=== PATIENT | female | born 1935 | race African-American/Black ===

== ENCOUNTER 2017-11-05 16:00 | Inpatient (IN) ==
[2017-11-05] MEDS ORDERED: ALBUTEROL/IPRATROPIUM 3 ML NEB RESP TX STA (16:58)
[2017-11-05] MEDS ORDERED: ONDANSETRON 4 MG/2 ML VIAL IV PRN (18:52)
[2017-11-05] MEDS ORDERED: DEXTROSE 50% 25 GM/50 ML VIAL IV PRN (18:52)
[2017-11-05] MEDS ORDERED: GLUCAGON 1 MG VIAL IM PRN (18:52)
[2017-11-05 19:45] LABS: Eosinophils % 0.4 % (0.00-10.9); Hematocrit 40.1 VOL% (35.7-47.0); Hemoglobin 12.5 GM/DL (12.0-16.0); Immature Granulocytes % 0.4 %; Immature Granulocytes Absolute 0.02 #; Lymphocytes % 19.4 % (21.3-54.2); Mean Corpuscular HGB Conc 31.2 GM/DL (32-36); Mean Corpuscular Hemoglobin 25 PG (27-34); Mean Corpuscular Volume 79.2 FL (87-102); Mean Platelet Volume 10.5 FL (9.6-12.0); Monocytes # 0.5 10*3/uL (0.11-0.8); Monocytes % 9.6 % (1.7-12.7); Neutrophils # 3.6 10*3/uL (1.4-7.4); Neutrophils % 70.2 % (38.7-73.9); Platelet Count 171 T/CUMM (130-400); Red Blood Count 5.06 MC/CUMM (3.8-5.5); Red Cell Distribution Width 14.6 % (9.3-17.3); White Blood Count 5.1 T/CUMM (4-12)
[2017-11-05 20:02] LABS: Calcium 8.4 MG/DL (8.5-10.1); Magnesium 2.4 MG/DL (1.8-2.4); Osmolality,Calculated 276.8 MOS/KG (273-304); Potassium 3.8 MMOL/L (3.5-5.1)
[2017-11-05 20:43] LABS: Apearance,Urine Slightly Hazy (Clear); Bilirubin,Urine Negative (Negative); Blood, Urine Moderate mg/dL (Negative); Glucose,Urine (UA) Negative (Negative); Ketones,Urine 5 mg/dL (Negative); Mucus,Urine Occasional /LPF (Occasional); Nitrite,Urine Negative (Negative); Protein,Urine 30 MG/DL; RBC,Urine 61 /HPF (0-4); Squamous Epithelial Cell,Urine Occasional /HPF (0-10); Urine Color Yellow (Yellow); Urine Specific Gravity 1.021 (1.001-1.035); WBC,Urine 2 /HPF (0-6)
[2017-11-05] MEDS ORDERED: MONTELUKAST 10 MG TABLET PO SCH (21:00)
[2017-11-05] MEDS: DOCUSATE SODIUM 100 MG CAPSULE PO SCH (21:04)
[2017-11-05] MEDS: INSULIN REGULAR 100 UNIT/ML SUBCUT SCH (21:04)
[2017-11-05] MEDS: OSELTAMIVIR 30 MG CAPSULE PO SCH (21:30)
[2017-11-06] MEDS: ALBUTEROL/IPRATROPIUM 3 ML NEB RESP TX SCH ×4 (01:28→19:25)
[2017-11-06 07:24] LABS: Eosinophils % 0.3 % (0.00-10.9); Hematocrit 35.3 VOL% (35.7-47.0); Hemoglobin 11.7 GM/DL (12.0-16.0); Immature Granulocytes % 0.3 %; Immature Granulocytes Absolute 0.01 #; Lymphocytes # 1.2 10*3/uL (1.4-4.0); Lymphocytes % 31.6 % (21.3-54.2); Mean Corpuscular HGB Conc 33.1 GM/DL (32-36); Mean Corpuscular Hemoglobin 25 PG (27-34); Mean Corpuscular Volume 76.6 FL (87-102); Mean Platelet Volume 10.4 FL (9.6-12.0); Monocytes # 0.5 10*3/uL (0.11-0.8); Monocytes % 13.8 % (1.7-12.7); Platelet Count 146 T/CUMM (130-400); Red Blood Count 4.61 MC/CUMM (3.8-5.5); Red Cell Distribution Width 14.5 % (9.3-17.3); White Blood Count 3.8 T/CUMM (4-12)
[2017-11-06 07:42] LABS: Calcium 7.8 MG/DL (8.5-10.1); Osmolality,Calculated 276.8 MOS/KG (273-304); Potassium 4.1 MMOL/L (3.5-5.1)
[2017-11-06] MEDS: INSULIN REGULAR 100 UNIT/ML SUBCUT SCH ×4 (08:47→22:12)
[2017-11-06] MEDS: DOCUSATE SODIUM 100 MG CAPSULE PO SCH ×2 (08:50→20:22)
[2017-11-06] MEDS: ACETAMINOPHEN 325 MG TABLET PO PRN (08:50)
[2017-11-06] MEDS: OSELTAMIVIR 30 MG CAPSULE PO SCH ×2 (08:52→22:13)
[2017-11-06] MEDS: PANTOPRAZOLE 40 MG TABLET PO SCH (08:52)
[2017-11-06] MEDS ORDERED: ALBUTEROL/IPRATROPIUM 3 ML NEB RESP TX PRN (09:58)
[2017-11-06] MEDS ORDERED: AMINOPHYLLINE 250 MG in SODIUM CHLORIDE 0.9% 100 ML IV ONE (10:12)
[2017-11-06] MEDS: methylPREDNISolone SOD SUC 40 MG/1 ML VIAL IV SCH (11:45)
[2017-11-06] MEDS: MONTELUKAST 10 MG TABLET PO SCH ×2 (11:46→22:13)
[2017-11-06] MEDS ORDERED: FLUTICASONE 50 MCG NASAL SPRAY 16 GM BOTTLE BOTH NARES PRN (14:45)
[2017-11-06] MEDS ORDERED: AMINOPHYLLINE 500 MG in SODIUM CHLORIDE 0.9% 480 ML IV SCH (15:42)
[2017-11-06] MEDS: MAGNESIUM OXIDE 400 MG TABLET PO SCH ×2 (16:24→22:12)
[2017-11-06] MEDS: INSULIN NPH/REGULAR 70/30 100 UNIT/ML SUBCUT SCH (16:25)
[2017-11-06] MEDS: ATENOLOL 25 MG TABLET PO SCH ×2 (16:25→22:13)
[2017-11-06] MEDS: DOXYCYCLINE HYCLATE INJ 100 MG in SODIUM CHLORIDE 0.9% 100 ML IV SCH (16:26)
[2017-11-06] MEDS: SIMVASTATIN 10 MG TABLET PO SCH (22:13)
[2017-11-07] MEDS: ALBUTEROL/IPRATROPIUM 3 ML NEB RESP TX SCH ×4 (00:08→20:06)
[2017-11-07] MEDS ORDERED: hydrALAZINE 20 MG/1 ML VIAL IV ONE (00:24)
[2017-11-07] MEDS: methylPREDNISolone SOD SUC 40 MG/1 ML VIAL IV SCH ×4 (00:42→21:59)
[2017-11-07] MEDS: DOXYCYCLINE HYCLATE INJ 100 MG in SODIUM CHLORIDE 0.9% 100 ML IV SCH ×2 (03:28→16:10)
[2017-11-07] MEDS: ACETAMINOPHEN 325 MG TABLET PO PRN (03:29)
[2017-11-07] MEDS: DOCUSATE SODIUM 100 MG CAPSULE PO SCH ×2 (08:50→21:00)
[2017-11-07] MEDS: INSULIN REGULAR 100 UNIT/ML SUBCUT SCH ×4 (09:49→20:53)
[2017-11-07] MEDS: MAGNESIUM OXIDE 400 MG TABLET PO SCH ×3 (09:51→20:53)
[2017-11-07] MEDS: ATENOLOL 25 MG TABLET PO SCH ×2 (09:51→20:53)
[2017-11-07] MEDS: OSELTAMIVIR 30 MG CAPSULE PO SCH ×2 (09:52→20:52)
[2017-11-07] MEDS: MONTELUKAST 10 MG TABLET PO SCH ×2 (09:52→20:53)
[2017-11-07] MEDS: INSULIN NPH/REGULAR 70/30 100 UNIT/ML SUBCUT SCH ×2 (09:52→16:10)
[2017-11-07] MEDS: ASPIRIN EC 81 MG TABLET PO SCH (09:52)
[2017-11-07] MEDS: THEOPHYLLINE ER (24 HR) 200 MG CAPSULE PO SCH (12:17)
[2017-11-07] MEDS: PANTOPRAZOLE 40 MG TABLET PO SCH (16:10)
[2017-11-07] MEDS: SIMVASTATIN 10 MG TABLET PO SCH (20:52)
[2017-11-08] MEDS: ALBUTEROL/IPRATROPIUM 3 ML NEB RESP TX SCH ×4 (00:45→19:50)
[2017-11-08] MEDS: DOXYCYCLINE HYCLATE INJ 100 MG in SODIUM CHLORIDE 0.9% 100 ML IV SCH ×2 (03:40→16:48)
[2017-11-08] MEDS ORDERED: DOXYCYCLINE HYCLATE 100 MG CAPSULE PO ONE (05:30)
[2017-11-08] MEDS: ACETAMINOPHEN 325 MG TABLET PO PRN (06:15)
[2017-11-08] MEDS ORDERED: predniSONE 20 MG TABLET PO SCH (09:00)
[2017-11-08] MEDS: ATENOLOL 25 MG TABLET PO SCH ×2 (09:23→20:01)
[2017-11-08] MEDS: MAGNESIUM OXIDE 400 MG TABLET PO SCH ×3 (09:23→20:00)
[2017-11-08] MEDS: INSULIN NPH/REGULAR 70/30 100 UNIT/ML SUBCUT SCH ×2 (09:23→16:47)
[2017-11-08] MEDS: OSELTAMIVIR 30 MG CAPSULE PO SCH ×2 (09:23→20:01)
[2017-11-08] MEDS: NYSTATIN 500,000 UNIT/5 ML UDCUP SWISH/SWAL SCH ×3 (09:23→20:01)
[2017-11-08] MEDS: DOCUSATE SODIUM 100 MG CAPSULE PO SCH ×2 (09:23→20:01)
[2017-11-08] MEDS: PANTOPRAZOLE 40 MG TABLET PO SCH (09:23)
[2017-11-08] MEDS: MONTELUKAST 10 MG TABLET PO SCH ×2 (09:23→20:01)
[2017-11-08] MEDS: ASPIRIN EC 81 MG TABLET PO SCH (09:23)
[2017-11-08] MEDS: INSULIN REGULAR 100 UNIT/ML SUBCUT SCH ×4 (09:23→20:01)
[2017-11-08] MEDS: THEOPHYLLINE ER (24 HR) 200 MG CAPSULE PO SCH (11:51)
[2017-11-08] MEDS: SIMVASTATIN 10 MG TABLET PO SCH (20:01)
[2017-11-08] MEDS: MICONAZOLE 2% VAG CREAM 45 GM TUBE VAG SCH (22:56)
[2017-11-09] MEDS: ALBUTEROL/IPRATROPIUM 3 ML NEB RESP TX SCH ×4 (00:48→19:32)
[2017-11-09] MEDS: DOXYCYCLINE HYCLATE INJ 100 MG in SODIUM CHLORIDE 0.9% 100 ML IV SCH (02:39)
[2017-11-09] MEDS: PANTOPRAZOLE 40 MG TABLET PO SCH (08:39)
[2017-11-09] MEDS: MONTELUKAST 10 MG TABLET PO SCH ×2 (08:39→21:44)
[2017-11-09] MEDS: ATENOLOL 25 MG TABLET PO SCH ×2 (08:39→21:50)
[2017-11-09] MEDS: INSULIN NPH/REGULAR 70/30 100 UNIT/ML SUBCUT SCH ×2 (08:39→17:31)
[2017-11-09] MEDS: predniSONE 20 MG TABLET PO SCH (08:39)
[2017-11-09] MEDS: MAGNESIUM OXIDE 400 MG TABLET PO SCH ×3 (08:39→21:44)
[2017-11-09] MEDS: ASPIRIN EC 81 MG TABLET PO SCH (08:39)
[2017-11-09] MEDS: NYSTATIN 500,000 UNIT/5 ML UDCUP SWISH/SWAL SCH ×4 (08:39→21:44)
[2017-11-09] MEDS: DOXYCYCLINE HYCLATE 100 MG CAPSULE PO SCH ×2 (08:39→21:44)
[2017-11-09] MEDS: DOCUSATE SODIUM 100 MG CAPSULE PO SCH ×2 (08:39→21:44)
[2017-11-09] MEDS: INSULIN REGULAR 100 UNIT/ML SUBCUT SCH ×4 (08:40→21:45)
[2017-11-09] MEDS: OSELTAMIVIR 30 MG CAPSULE PO SCH ×2 (08:40→21:44)
[2017-11-09] MEDS: THEOPHYLLINE ER (24 HR) 200 MG CAPSULE PO SCH (14:07)
[2017-11-09] MEDS: SIMVASTATIN 10 MG TABLET PO SCH (21:45)
[2017-11-09] MEDS: MICONAZOLE 2% VAG CREAM 45 GM TUBE VAG SCH (21:46)
[2017-11-10] MEDS: ALBUTEROL/IPRATROPIUM 3 ML NEB RESP TX SCH ×4 (00:24→19:22)
[2017-11-10 05:51] LABS: Basophils % 0.1 % (0.0-0.8); Eosinophils % 0.1 % (0.00-10.9); Hematocrit 34.8 VOL% (35.7-47.0); Hemoglobin 11.2 GM/DL (12.0-16.0); Immature Granulocytes Absolute 0.11 #; Lymphocytes # 3.7 10*3/uL (1.4-4.0); Lymphocytes % 33.2 % (21.3-54.2); Mean Corpuscular HGB Conc 32.2 GM/DL (32-36); Mean Corpuscular Hemoglobin 25 PG (27-34); Mean Corpuscular Volume 78.6 FL (87-102); Mean Platelet Volume 10.8 FL (9.6-12.0); Monocytes # 0.9 10*3/uL (0.11-0.8); Monocytes % 7.7 % (1.7-12.7); NRBC # 0.03 10*3/uL; Neutrophils # 6.5 10*3/uL (1.4-7.4); Neutrophils % 57.9 % (38.7-73.9); Platelet Count 157 T/CUMM (130-400); Red Blood Count 4.43 MC/CUMM (3.8-5.5); Red Cell Distribution Width 14.5 % (9.3-17.3); White Blood Count 11.2 T/CUMM (4-12)
[2017-11-10 06:14] LABS: Eosinophils 1 % (0-10); Lymphocytes 44 % (20-55); Platelet Estimate Normal; Segmented Neutrophils 49 % (50-85); Total Cells Counted 100
[2017-11-10 06:20] LABS: Calcium 8.8 MG/DL (8.5-10.1); Osmolality,Calculated 287.8 MOS/KG (273-304); Potassium 3.6 MMOL/L (3.5-5.1)
[2017-11-10] MEDS: INSULIN REGULAR 100 UNIT/ML SUBCUT SCH ×4 (08:01→21:42)
[2017-11-10] MEDS: ATENOLOL 25 MG TABLET PO SCH ×2 (08:55→21:46)
[2017-11-10] MEDS: ASPIRIN EC 81 MG TABLET PO SCH (08:55)
[2017-11-10] MEDS: MAGNESIUM OXIDE 400 MG TABLET PO SCH ×3 (08:55→21:46)
[2017-11-10] MEDS: DOCUSATE SODIUM 100 MG CAPSULE PO SCH ×2 (08:55→21:46)
[2017-11-10] MEDS: NYSTATIN 500,000 UNIT/5 ML UDCUP SWISH/SWAL SCH ×4 (08:55→21:49)
[2017-11-10] MEDS: DOXYCYCLINE HYCLATE 100 MG CAPSULE PO SCH ×2 (08:55→21:46)
[2017-11-10] MEDS: OSELTAMIVIR 30 MG CAPSULE PO SCH ×2 (08:55→21:47)
[2017-11-10] MEDS: MONTELUKAST 10 MG TABLET PO SCH ×2 (08:55→21:46)
[2017-11-10] MEDS: PANTOPRAZOLE 40 MG TABLET PO SCH (08:55)
[2017-11-10] MEDS: predniSONE 20 MG TABLET PO SCH (08:55)
[2017-11-10] MEDS: INSULIN NPH/REGULAR 70/30 100 UNIT/ML SUBCUT SCH ×2 (08:56→16:33)
[2017-11-10] MEDS: THEOPHYLLINE ER (24 HR) 200 MG CAPSULE PO SCH (11:29)
[2017-11-10] MEDS: DORNASE ALFA 2.5 MG/2.5 ML VIAL RESP TX SCH ×2 (12:32→19:32)
[2017-11-10] MEDS: SIMVASTATIN 10 MG TABLET PO SCH (21:46)
[2017-11-10] MEDS: ACETAMINOPHEN 325 MG TABLET PO PRN (21:55)
[2017-11-10] MEDS: MICONAZOLE 2% VAG CREAM 45 GM TUBE VAG SCH (22:58)
[2017-11-11] MEDS: ALBUTEROL/IPRATROPIUM 3 ML NEB RESP TX SCH ×3 (00:43→12:46)
[2017-11-11] MEDS: DORNASE ALFA 2.5 MG/2.5 ML VIAL RESP TX SCH (07:20)
[2017-11-11] MEDS: INSULIN REGULAR 100 UNIT/ML SUBCUT SCH ×2 (08:05→12:57)
[2017-11-11] MEDS: ATENOLOL 25 MG TABLET PO SCH (09:28)
[2017-11-11] MEDS: MAGNESIUM OXIDE 400 MG TABLET PO SCH (09:28)
[2017-11-11] MEDS: OSELTAMIVIR 30 MG CAPSULE PO SCH (09:28)
[2017-11-11] MEDS: MONTELUKAST 10 MG TABLET PO SCH (09:29)
[2017-11-11] MEDS: NYSTATIN 500,000 UNIT/5 ML UDCUP SWISH/SWAL SCH ×2 (09:29→13:14)
[2017-11-11] MEDS: ASPIRIN EC 81 MG TABLET PO SCH (09:29)
[2017-11-11] MEDS: INSULIN NPH/REGULAR 70/30 100 UNIT/ML SUBCUT SCH (09:29)
[2017-11-11] MEDS: DOXYCYCLINE HYCLATE 100 MG CAPSULE PO SCH (09:29)
[2017-11-11] MEDS: predniSONE 20 MG TABLET PO SCH (09:29)
[2017-11-11] MEDS: PANTOPRAZOLE 40 MG TABLET PO SCH (09:29)
[2017-11-11] MEDS: DOCUSATE SODIUM 100 MG CAPSULE PO SCH (09:29)
[2017-11-11] MEDS: THEOPHYLLINE ER (24 HR) 200 MG CAPSULE PO SCH (12:02)
[2017-11-11 12:12] VITALS: BP 121/60
== END 2017-11-11 14:07 | disposition home health service (06) | DRG 194 ==
LOC: N.ED 16:00 → N.EDINP 18:52 → SUATTDRO 18:52 → N.EDINP 20:50 → N.5E 21:02
PROVIDERS: ADMIT Internal Medicine; ATTEND Internal Medicine Geriatric Medicine

== ENCOUNTER 2019-05-16 17:31 | Observation (INO) ==
[2019-05-16 17:56] LABS: Basophils % 0.3 % (0.0-0.8); Eosinophils # 0.1 10*3/uL (0.0-0.87); Eosinophils % 1.3 % (0.00-10.9); Hematocrit 39.3 VOL% (35.7-47.0); Hemoglobin 11.8 GM/DL (12.0-16.0); Immature Granulocytes % 0.5 %; Immature Granulocytes Absolute 0.04 #; Lymphocytes # 2.2 10*3/uL (1.4-4.0); Lymphocytes % 27.6 % (21.3-54.2); Mean Corpuscular Volume 80.7 FL (87-102); Mean Platelet Volume 9.9 FL (9.6-12.0); Monocytes % 7.3 % (1.7-12.7); Platelet Count 178 T/CUMM (130-400); Red Blood Count 4.87 MC/CUMM (3.8-5.5); Red Cell Distribution Width 14.6 % (9.3-17.3); White Blood Count 7.9 T/CUMM (4-12)
[2019-05-16 18:26] LABS: Alanine Aminotransferase 17 U/L (13-56); Albumin 3.3 G/DL (3.4-5.0); Alkaline Phosphatase 110 U/L (45-117); Aspartate Amino Transferase 14 U/L (0-37); Bilirubin,Total < 0.39 MG/DL (0.2-1.0); Blood Urea Nitrogen 13 MG/DL (7-18); Calcium 9.4 MG/DL (8.5-10.1); Glucose 198 MG/DL (74-106); Osmolality,Calculated 284.4 MOS/KG (273-304); Total Protein 7.8 G/DL (6.4-8.3)
[2019-05-16 18:36] LABS: Apearance,Urine CLEAR (Clear); Bacteria,Urine Occasional /HPF (Few); Bilirubin,Urine Negative (Negative); Blood, Urine Small mg/dL (Negative); Glucose,Urine (UA) 150 mg/dL (Negative); Ketones,Urine Negative (Negative); Mucus,Urine Occasional /LPF (Occasional); Nitrite,Urine Negative (Negative); Protein,Urine Negative; RBC,Urine 1 /HPF (0-4); Squamous Epithelial Cell,Urine Occasional /HPF (0-10); Urine Color Yellow (Yellow); Urine Specific Gravity 1.014 (1.001-1.035); Urine Urobilinogen < 2.0 EU/DL (0.2-1.0); WBC,Urine 2 /HPF (0-6)
[2019-05-16] MEDS ORDERED: SODIUM CHLORIDE 0.9% 500 ML IV STA (20:11)
[2019-05-16] MEDS ORDERED: cloNIDine 0.1 MG TABLET ONE (22:02)
[2019-05-16] MEDS ORDERED: cloNIDine 0.1 MG TABLET PO STA (22:06)
[2019-05-16] MEDS ORDERED: ONDANSETRON 4 MG/2 ML VIAL IV PRN (23:49)
[2019-05-16] MEDS ORDERED: DEXTROSE 50% 25 GM/50 ML VIAL IV PRN (23:49)
[2019-05-16] MEDS ORDERED: GLUCAGON 1 MG VIAL IM PRN (23:49)
[2019-05-16] MEDS ORDERED: LABETALOL 20 MG/4 ML SYRINGE IV PRN (23:49)
[2019-05-17] MEDS ORDERED: DEXTROSE 10% 250 ML IV PRN (00:08)
[2019-05-17] MEDS: ATENOLOL 25 MG TABLET PO SCH ×2 (00:21→09:10)
[2019-05-17 05:01] LABS: Basophils % 0.1 % (0.0-0.8); Eosinophils # 0.1 10*3/uL (0.0-0.87); Eosinophils % 1.6 % (0.00-10.9); Hematocrit 36.7 VOL% (35.7-47.0); Hemoglobin 11.2 GM/DL (12.0-16.0); Immature Granulocytes % 0.2 %; Immature Granulocytes Absolute 0.02 #; Lymphocytes # 3.2 10*3/uL (1.4-4.0); Lymphocytes % 38.5 % (21.3-54.2); Mean Corpuscular HGB Conc 30.5 GM/DL (32-36); Mean Corpuscular Volume 80.3 FL (87-102); Monocytes % 6.9 % (1.7-12.7); Neutrophils % 52.7 % (38.7-73.9); Platelet Count 166 T/CUMM (130-400); Red Blood Count 4.57 MC/CUMM (3.8-5.5); Red Cell Distribution Width 14.6 % (9.3-17.3); White Blood Count 8.4 T/CUMM (4-12)
[2019-05-17 05:29] LABS: Calcium 9.1 MG/DL (8.5-10.1); Osmolality,Calculated 286.1 MOS/KG (273-304); Risk Ratio 3.36; Thyroid Stimulating Hormone 2.38 uIU/ml (0.358-3.74)
[2019-05-17] MEDS ORDERED: DOCUSATE SODIUM 100 MG CAPSULE PO PRN (09:00)
[2019-05-17] MEDS: INSULIN REGULAR 100 UNIT/ML SUBCUT SCH ×4 (09:09→21:31)
[2019-05-17] MEDS: ENOXAPARIN 40 MG/0.4 ML SYRINGE SUBCUT SCH (09:10)
[2019-05-17] MEDS: ASPIRIN EC 81 MG TABLET PO SCH (09:10)
[2019-05-17] MEDS: DEXAMETHASONE 0.1% OPH SOLN 5 ML BOTTLE RIGHT EAR SCH (21:31)
[2019-05-17] MEDS: hydrALAZINE 10 MG TABLET PO SCH (21:31)
[2019-05-17] MEDS: SIMVASTATIN 10 MG TABLET PO SCH (21:31)
[2019-05-18] MEDS: ACETAMINOPHEN 325 MG TABLET PO PRN ×4 (00:55→21:31)
[2019-05-18 05:29] LABS: Basophils % 0.2 % (0.0-0.8); Eosinophils # 0.1 10*3/uL (0.0-0.87); Eosinophils % 1.6 % (0.00-10.9); Hematocrit 41.2 VOL% (35.7-47.0); Hemoglobin 12.9 GM/DL (12.0-16.0); Immature Granulocytes % 0.4 %; Immature Granulocytes Absolute 0.03 #; Lymphocytes # 2.9 10*3/uL (1.4-4.0); Lymphocytes % 34.3 % (21.3-54.2); Mean Corpuscular HGB Conc 31.3 GM/DL (32-36); Mean Corpuscular Volume 78.8 FL (87-102); Mean Platelet Volume 10.7 FL (9.6-12.0); Monocytes % 7.6 % (1.7-12.7); Neutrophils % 55.9 % (38.7-73.9); Platelet Count 181 T/CUMM (130-400); Red Blood Count 5.23 MC/CUMM (3.8-5.5); Red Cell Distribution Width 14.3 % (9.3-17.3); White Blood Count 8.3 T/CUMM (4-12)
[2019-05-18 05:51] LABS: Calcium 9.2 MG/DL (8.5-10.1)
[2019-05-18] MEDS: DEXAMETHASONE 0.1% OPH SOLN 5 ML BOTTLE RIGHT EAR SCH ×2 (08:30→21:32)
[2019-05-18] MEDS: ENOXAPARIN 40 MG/0.4 ML SYRINGE SUBCUT SCH (08:31)
[2019-05-18] MEDS: hydrALAZINE 10 MG TABLET PO SCH (08:31)
[2019-05-18] MEDS: ASPIRIN EC 81 MG TABLET PO SCH (08:31)
[2019-05-18] MEDS: INSULIN REGULAR 100 UNIT/ML SUBCUT SCH ×4 (08:31→21:34)
[2019-05-18] MEDS: ATENOLOL 25 MG TABLET PO SCH (08:31)
[2019-05-18] MEDS: PANTOPRAZOLE 40 MG TABLET PO SCH (10:18)
[2019-05-18] MEDS: POTASSIUM CHLORIDE 8 MEQ CAPSULE PO SCH ×2 (11:42→21:31)
[2019-05-18] MEDS ORDERED: hydrALAZINE 20 MG/1 ML VIAL IV PRN (11:58)
[2019-05-18] MEDS: MAGNESIUM OXIDE 400 MG TABLET PO SCH ×2 (15:24→21:31)
[2019-05-18] MEDS ORDERED: INSULIN GLARGINE 100 UNIT/ML SUBCUT SCH (21:00)
[2019-05-18] MEDS: ZALEPLON 5 MG CAPSULE PO SCH ×2 (21:29→22:45)
[2019-05-18] MEDS: SIMVASTATIN 10 MG TABLET PO SCH (21:31)
[2019-05-19 05:53] LABS: Basophils % 0.3 % (0.0-0.8); Eosinophils # 0.2 10*3/uL (0.0-0.87); Hematocrit 39.1 VOL% (35.7-47.0); Hemoglobin 12.2 GM/DL (12.0-16.0); Immature Granulocytes % 0.4 %; Immature Granulocytes Absolute 0.03 #; Lymphocytes # 3.1 10*3/uL (1.4-4.0); Lymphocytes % 38.6 % (21.3-54.2); Mean Corpuscular HGB Conc 31.2 GM/DL (32-36); Mean Corpuscular Volume 79.5 FL (87-102); Mean Platelet Volume 10.5 FL (9.6-12.0); Monocytes % 7.5 % (1.7-12.7); Neutrophils % 51.2 % (38.7-73.9); Platelet Count 171 T/CUMM (130-400); Red Blood Count 4.92 MC/CUMM (3.8-5.5); Red Cell Distribution Width 14.6 % (9.3-17.3); White Blood Count 7.9 T/CUMM (4-12)
[2019-05-19 06:12] LABS: Calcium 9.1 MG/DL (8.5-10.1); Osmolality,Calculated 286.7 MOS/KG (273-304)
[2019-05-19] MEDS ORDERED: INSULIN GLARGINE 100 UNIT/ML SUBCUT SCH (07:10)
[2019-05-19] MEDS: POTASSIUM CHLORIDE 8 MEQ CAPSULE PO SCH (08:29)
[2019-05-19] MEDS: ATENOLOL 25 MG TABLET PO SCH (08:30)
[2019-05-19] MEDS: PANTOPRAZOLE 40 MG TABLET PO SCH (08:30)
[2019-05-19] MEDS: ASPIRIN EC 81 MG TABLET PO SCH (08:30)
[2019-05-19] MEDS: MAGNESIUM OXIDE 400 MG TABLET PO SCH (08:30)
[2019-05-19] MEDS: ENOXAPARIN 40 MG/0.4 ML SYRINGE SUBCUT SCH (08:32)
[2019-05-19] MEDS: DEXAMETHASONE 0.1% OPH SOLN 5 ML BOTTLE RIGHT EAR SCH (08:32)
[2019-05-19] MEDS: INSULIN REGULAR 100 UNIT/ML SUBCUT SCH ×2 (08:33→12:04)
[2019-05-19 11:36] VITALS: BP 104/54
== END 2019-05-19 13:09 | disposition home health service (06) ==
LOC: N.ED 17:31 → N.EDINP 17:31 → N.2E 23:14
PROVIDERS: ADMIT Internal Medicine; ATTEND Internal Medicine

== ENCOUNTER 2019-05-30 13:37 | Inpatient (IN) ==
[2019-05-30] MEDS ORDERED: SODIUM CHLORIDE 0.9% 1,000 ML IV STA (15:06)
[2019-05-30] MEDS ORDERED: ONDANSETRON 4 MG/2 ML VIAL IV ONE (15:06)
[2019-05-30] MEDS ORDERED: HYDROmorphone 2 MG/1 ML VIAL IV STA (15:06)
[2019-05-30 15:58] LABS: INR 1.3; PT Patient Result 13.9 SECS (9.6-12.2)
[2019-05-30 16:08] LABS: Albumin 3.6 G/DL (3.4-5.0); Bilirubin,Total 0.6 MG/DL (0.2-1.0); Calcium 9.6 MG/DL (8.5-10.1); Osmolality,Calculated 286.4 MOS/KG (273-304); Total Protein 8.6 G/DL (6.4-8.3)
[2019-05-30 16:48] LABS: Basophils % 0.2 % (0.0-0.8); Hematocrit 41.3 VOL% (35.7-47.0); Immature Granulocytes % 0.5 %; Immature Granulocytes Absolute 0.06 #; Lymphocytes % 8.6 % (21.3-54.2); Mean Corpuscular HGB Conc 31.5 GM/DL (32-36); Mean Corpuscular Volume 79.6 FL (87-102); Mean Platelet Volume 9.8 FL (9.6-12.0); Monocytes % 2.4 % (1.7-12.7); Neutrophils % 88.3 % (38.7-73.9); Platelet Count 216 T/CUMM (130-400); Red Blood Count 5.19 MC/CUMM (3.8-5.5); Red Cell Distribution Width 14.8 % (9.3-17.3); White Blood Count 11.7 T/CUMM (4-12)
[2019-05-30] MEDS ORDERED: MORPHINE 4 MG/1 ML VIAL IV ONE ×2 (16:57→18:11)
[2019-05-30] MEDS ORDERED: MORPHINE 4 MG/1 ML VIAL ONE (16:57)
[2019-05-30] MEDS ORDERED: diphenhydrAMINE 50 MG/1 ML VIAL IV STA (16:57)
[2019-05-30 17:58] LABS: Apearance,Urine CLEAR (Clear); Bilirubin,Urine Negative (Negative); Blood, Urine Moderate mg/dL (Negative); Glucose,Urine (UA) >=500 mg/dL (Negative); Ketones,Urine 20 mg/dL (Negative); Mucus,Urine Occasional /LPF (Occasional); Nitrite,Urine Negative (Negative); Protein,Urine 30 MG/DL; RBC,Urine 15 /HPF (0-4); Squamous Epithelial Cell,Urine Occasional /HPF (0-10); Urine Color Colorless (Yellow); Urine Specific Gravity 1.009 (1.001-1.035); Urine Urobilinogen < 2.0 EU/DL (0.2-1.0)
[2019-05-30] MEDS ORDERED: hydrALAZINE 20 MG/1 ML VIAL IV STA (18:11)
[2019-05-30] MEDS ORDERED: HYDROmorphone 2 MG/1 ML VIAL IV PRN (20:32)
[2019-05-30] MEDS ORDERED: ONDANSETRON 4 MG/2 ML VIAL IV PRN (20:32)
[2019-05-30] MEDS ORDERED: DOCUSATE SODIUM 100 MG CAPSULE PO PRN (20:32)
[2019-05-30] MEDS ORDERED: PROMETHAZINE INJ 25 MG in SODIUM CHLORIDE 0.9% 50 ML IV PRN (20:32)
[2019-05-30] MEDS ORDERED: hydrALAZINE 20 MG/1 ML VIAL IV PRN (20:32)
[2019-05-30] MEDS ORDERED: INSULIN REGULAR 100 UNIT/ML SUBCUT SCH (21:00)
[2019-05-30] MEDS: MORPHINE 4 MG/1 ML VIAL IV PRN (21:33)
[2019-05-30] MEDS: MECLIZINE 12.5 MG TABLET PO SCH (21:43)
[2019-05-30] MEDS: TAMSULOSIN 0.4 MG CAPSULE PO SCH (21:44)
[2019-05-30] MEDS: MAGNESIUM OXIDE 400 MG TABLET PO SCH (21:45)
[2019-05-30] MEDS: ATENOLOL 25 MG TABLET PO SCH (21:46)
[2019-05-30] MEDS: SODIUM CHLORIDE 0.9% 1,000 ML IV SCH (21:47)
[2019-05-30] MEDS: POTASSIUM CHLORIDE 8 MEQ CAPSULE PO SCH (21:57)
[2019-05-31] MEDS ORDERED: DEXTROSE 50% 25 GM/50 ML VIAL IV PRN (00:42)
[2019-05-31] MEDS ORDERED: GLUCAGON 1 MG VIAL IM PRN (00:42)
[2019-05-31] MEDS ORDERED: ALBUTEROL 2.5 MG/3 ML NEB RESP TX PRN (01:00)
[2019-05-31 02:17] LABS: Basophils % 0.2 % (0.0-0.8); Hematocrit 37.9 VOL% (35.7-47.0); Hemoglobin 11.8 GM/DL (12.0-16.0); Immature Granulocytes % 0.6 %; Immature Granulocytes Absolute 0.07 #; Lymphocytes # 1.8 10*3/uL (1.4-4.0); Lymphocytes % 14.5 % (21.3-54.2); Mean Corpuscular HGB Conc 31.1 GM/DL (32-36); Mean Corpuscular Volume 79.5 FL (87-102); Mean Platelet Volume 9.7 FL (9.6-12.0); Neutrophils % 77.7 % (38.7-73.9); Platelet Count 191 T/CUMM (130-400); Red Blood Count 4.77 MC/CUMM (3.8-5.5); Red Cell Distribution Width 14.7 % (9.3-17.3); White Blood Count 12.2 T/CUMM (4-12)
[2019-05-31 02:31] LABS: Calcium 8.6 MG/DL (8.5-10.1); Osmolality,Calculated 291.1 MOS/KG (273-304)
[2019-05-31] MEDS: INSULIN REGULAR 100 UNIT/ML SUBCUT SCH ×3 (07:22→19:11)
[2019-05-31] MEDS: MORPHINE 4 MG/1 ML VIAL IV PRN ×4 (08:54→21:50)
[2019-05-31] MEDS: diphenhydrAMINE 50 MG/1 ML VIAL IV PRN ×2 (08:54→15:17)
[2019-05-31] MEDS: cefTRIAXone 1,000 MG in SYRINGE 1 EACH IV SCH (08:55)
[2019-05-31] MEDS ORDERED: INSULIN GLARGINE 100 UNIT/ML SUBCUT SCH (09:00)
[2019-05-31] MEDS: MECLIZINE 12.5 MG TABLET PO SCH ×2 (10:34→21:57)
[2019-05-31] MEDS: MAGNESIUM OXIDE 400 MG TABLET PO SCH ×3 (10:35→21:56)
[2019-05-31] MEDS: FUROSEMIDE 40 MG TABLET PO SCH (10:35)
[2019-05-31] MEDS: POTASSIUM CHLORIDE 8 MEQ CAPSULE PO SCH ×2 (10:35→21:56)
[2019-05-31] MEDS: TAMSULOSIN 0.4 MG CAPSULE PO SCH ×2 (10:35→21:56)
[2019-05-31] MEDS: CETIRIZINE 10 MG TABLET PO SCH (10:36)
[2019-05-31] MEDS: PANTOPRAZOLE 40 MG TABLET PO SCH (10:36)
[2019-05-31] MEDS: ATENOLOL 25 MG TABLET PO SCH ×2 (10:36→21:57)
[2019-05-31] MEDS: DEXAMETHASONE 0.1% OPH SOLN 5 ML BOTTLE RIGHT EAR SCH ×2 (16:21→22:25)
[2019-05-31] MEDS: FLUTICASONE 50 MCG NASAL SPRAY 16 GM BOTTLE BOTH NARES SCH (17:14)
[2019-06-01] MEDS: MORPHINE 4 MG/1 ML VIAL IV PRN ×4 (01:12→14:04)
[2019-06-01] MEDS: INSULIN REGULAR 100 UNIT/ML SUBCUT SCH ×5 (01:15→23:44)
[2019-06-01] MEDS: SODIUM CHLORIDE 0.9% 1,000 ML IV SCH ×5 (03:15→23:52)
[2019-06-01 08:51] LABS: Basophils % 0.1 % (0.0-0.8); Eosinophils # 0.1 10*3/uL (0.0-0.87); Eosinophils % 0.8 % (0.00-10.9); Immature Granulocytes % 0.4 %; Immature Granulocytes Absolute 0.04 #; Lymphocytes # 1.8 10*3/uL (1.4-4.0); Lymphocytes % 19.7 % (21.3-54.2); Mean Corpuscular HGB Conc 30.6 GM/DL (32-36); Monocytes % 9.2 % (1.7-12.7); Neutrophils % 69.8 % (38.7-73.9); Platelet Count 155 T/CUMM (130-400); Red Blood Count 3.95 MC/CUMM (3.8-5.5); Red Cell Distribution Width 15.1 % (9.3-17.3); White Blood Count 9.2 T/CUMM (4-12)
[2019-06-01] MEDS: cefTRIAXone 1,000 MG in SYRINGE 1 EACH IV SCH (08:58)
[2019-06-01] MEDS: DEXAMETHASONE 0.1% OPH SOLN 5 ML BOTTLE RIGHT EAR SCH ×2 (08:58→20:58)
[2019-06-01] MEDS: FLUTICASONE 50 MCG NASAL SPRAY 16 GM BOTTLE BOTH NARES SCH (08:58)
[2019-06-01] MEDS: CETIRIZINE 10 MG TABLET PO SCH (08:59)
[2019-06-01] MEDS: PANTOPRAZOLE 40 MG TABLET PO SCH (08:59)
[2019-06-01] MEDS: MECLIZINE 12.5 MG TABLET PO SCH ×2 (08:59→20:59)
[2019-06-01] MEDS: TAMSULOSIN 0.4 MG CAPSULE PO SCH ×2 (08:59→20:59)
[2019-06-01] MEDS: MAGNESIUM OXIDE 400 MG TABLET PO SCH ×3 (08:59→20:59)
[2019-06-01] MEDS: ATENOLOL 25 MG TABLET PO SCH ×2 (08:59→21:00)
[2019-06-01] MEDS: FUROSEMIDE 40 MG TABLET PO SCH (08:59)
[2019-06-01] MEDS: POTASSIUM CHLORIDE 8 MEQ CAPSULE PO SCH ×2 (09:00→20:58)
[2019-06-01 09:02] LABS: Hemoglobin 9.8 GM/DL (12.0-16.0)
[2019-06-01 09:18] LABS: Calcium 7.9 MG/DL (8.5-10.1); Osmolality,Calculated 281.4 MOS/KG (273-304)
[2019-06-01] MEDS ORDERED: FLUCONAZOLE INJ 200 MG in PREMIX 1 EACH IV ONE (16:13)
[2019-06-01 20:19] LABS: INR 1.1; PT Patient Result 11.7 SECS (9.6-12.2); Partial Thromboplastin Time 23.8 SECS (20.8-36.0)
[2019-06-01 20:25] LABS: Albumin 2.5 G/DL (3.4-5.0); Bilirubin,Total 0.4 MG/DL (0.2-1.0); Osmolality,Calculated 282.5 MOS/KG (273-304); Total Protein 6.7 G/DL (6.4-8.3)
[2019-06-01] MEDS: diphenhydrAMINE 50 MG/1 ML VIAL IV PRN (21:01)
[2019-06-02] MEDS: ACETAMINOPHEN 325 MG TABLET PO PRN (03:14)
[2019-06-02] MEDS: INSULIN REGULAR 100 UNIT/ML SUBCUT SCH ×3 (05:17→18:40)
[2019-06-02 06:21] LABS: Basophils % 0.1 % (0.0-0.8); Eosinophils % 0.3 % (0.00-10.9); Hematocrit 32.3 VOL% (35.7-47.0); Immature Granulocytes % 0.8 %; Immature Granulocytes Absolute 0.08 #; Lymphocytes # 1.6 10*3/uL (1.4-4.0); Lymphocytes % 14.7 % (21.3-54.2); Mean Corpuscular Volume 80.3 FL (87-102); Mean Platelet Volume 10.1 FL (9.6-12.0); Monocytes % 11.1 % (1.7-12.7); Platelet Count 137 T/CUMM (130-400); Red Blood Count 4.02 MC/CUMM (3.8-5.5); Red Cell Distribution Width 14.8 % (9.3-17.3); White Blood Count 10.6 T/CUMM (4-12)
[2019-06-02 06:45] LABS: Calcium 8.1 MG/DL (8.5-10.1); Osmolality,Calculated 277.5 MOS/KG (273-304)
[2019-06-02] MEDS: TAMSULOSIN 0.4 MG CAPSULE PO SCH ×2 (09:00→21:06)
[2019-06-02] MEDS: MAGNESIUM OXIDE 400 MG TABLET PO SCH ×3 (09:00→21:05)
[2019-06-02] MEDS: MECLIZINE 12.5 MG TABLET PO SCH ×2 (09:00→21:06)
[2019-06-02] MEDS: POTASSIUM CHLORIDE 8 MEQ CAPSULE PO SCH ×2 (09:00→21:05)
[2019-06-02] MEDS: DEXAMETHASONE 0.1% OPH SOLN 5 ML BOTTLE RIGHT EAR SCH ×2 (09:00→21:06)
[2019-06-02] MEDS: cefTRIAXone 1,000 MG in SYRINGE 1 EACH IV SCH (09:17)
[2019-06-02] MEDS: MEROPENEM 1,000 MG in SODIUM CHLORIDE 0.9% 100 ML IV SCH ×2 (09:44→21:12)
[2019-06-02] MEDS: ATENOLOL 25 MG TABLET PO SCH ×2 (09:45→21:05)
[2019-06-02] MEDS: FLUTICASONE 50 MCG NASAL SPRAY 16 GM BOTTLE BOTH NARES SCH (09:45)
[2019-06-02] MEDS: SODIUM CHLORIDE 0.9% 1,000 ML IV SCH ×4 (10:26→19:45)
[2019-06-02] MEDS ORDERED: VANCOMYCIN INJ 1,500 MG in SODIUM CHLORIDE 0.9% 250 ML IV ONE (11:00)
[2019-06-02] MEDS ORDERED: VANCOMYCIN INJ 1,500 MG in SODIUM CHLORIDE 0.9% 500 ML IV ONE (11:00)
[2019-06-02] MEDS ORDERED: VANCOMYCIN INJ 1,000 MG in SODIUM CHLORIDE 0.9% 250 ML IV PRN (11:16)
[2019-06-02] MEDS ORDERED: SEVOFLURANE 1 UNIT/15 MINUTE INH ONE (12:16)
[2019-06-02] MEDS ORDERED: PHENYLEPHRINE 1 MG/10 ML SYRINGE IV ONE (12:17)
[2019-06-02] MEDS ORDERED: fentaNYL 100 MCG/2 ML VIAL ONE (12:17)
[2019-06-02] MEDS ORDERED: ETOMIDATE 40 MG/20 ML VIAL IV ONE (12:17)
[2019-06-02] MEDS ORDERED: ONDANSETRON 4 MG/2 ML VIAL ONE (12:17)
[2019-06-02] MEDS ORDERED: DEXTROSE 50% 25 GM/50 ML VIAL IV PRN (16:35)
[2019-06-02] MEDS ORDERED: GLUCAGON 1 MG VIAL IM PRN (16:35)
[2019-06-02] MEDS: FUROSEMIDE 40 MG TABLET PO SCH (16:59)
[2019-06-02] MEDS: PANTOPRAZOLE 40 MG TABLET PO SCH (16:59)
[2019-06-02] MEDS: CETIRIZINE 10 MG TABLET PO SCH (17:00)
[2019-06-03] MEDS: INSULIN REGULAR 100 UNIT/ML SUBCUT SCH ×4 (01:18→20:11)
[2019-06-03] MEDS: SODIUM CHLORIDE 0.9% 1,000 ML IV SCH ×3 (04:39→19:00)
[2019-06-03 07:51] LABS: Basophils % 0.1 % (0.0-0.8); Eosinophils % 0.5 % (0.00-10.9); Hematocrit 28.1 VOL% (35.7-47.0); Hemoglobin 8.8 GM/DL (12.0-16.0); Immature Granulocytes % 0.4 %; Immature Granulocytes Absolute 0.03 #; Lymphocytes % 12.1 % (21.3-54.2); Mean Corpuscular HGB Conc 31.3 GM/DL (32-36); Mean Corpuscular Volume 79.6 FL (87-102); Mean Platelet Volume 10.4 FL (9.6-12.0); Monocytes % 8.1 % (1.7-12.7); Neutrophils % 78.8 % (38.7-73.9); Platelet Count 127 T/CUMM (130-400); Red Blood Count 3.53 MC/CUMM (3.8-5.5); Red Cell Distribution Width 14.9 % (9.3-17.3); White Blood Count 8.3 T/CUMM (4-12)
[2019-06-03 08:08] LABS: Calcium 7.9 MG/DL (8.5-10.1); Osmolality,Calculated 284.3 MOS/KG (273-304)
[2019-06-03] MEDS: MECLIZINE 12.5 MG TABLET PO SCH ×2 (10:07→21:43)
[2019-06-03] MEDS: MAGNESIUM OXIDE 400 MG TABLET PO SCH ×3 (10:08→21:43)
[2019-06-03] MEDS: TAMSULOSIN 0.4 MG CAPSULE PO SCH ×2 (10:08→21:43)
[2019-06-03] MEDS: POTASSIUM CHLORIDE 8 MEQ CAPSULE PO SCH ×2 (10:08→21:44)
[2019-06-03] MEDS: FUROSEMIDE 40 MG TABLET PO SCH (10:08)
[2019-06-03] MEDS: ATENOLOL 25 MG TABLET PO SCH ×2 (10:09→21:44)
[2019-06-03] MEDS: PANTOPRAZOLE 40 MG TABLET PO SCH (10:09)
[2019-06-03] MEDS: CETIRIZINE 10 MG TABLET PO SCH (10:09)
[2019-06-03] MEDS: MEROPENEM 1,000 MG in SODIUM CHLORIDE 0.9% 100 ML IV SCH ×2 (10:51→16:50)
[2019-06-03] MEDS: FLUTICASONE 50 MCG NASAL SPRAY 16 GM BOTTLE BOTH NARES SCH (10:51)
[2019-06-03] MEDS: DEXAMETHASONE 0.1% OPH SOLN 5 ML BOTTLE RIGHT EAR SCH ×2 (10:51→21:43)
[2019-06-04] MEDS: INSULIN REGULAR 100 UNIT/ML SUBCUT SCH ×4 (00:40→19:34)
[2019-06-04] MEDS: SODIUM CHLORIDE 0.9% 1,000 ML IV SCH ×4 (00:45→20:56)
[2019-06-04] MEDS: MEROPENEM 1,000 MG in SODIUM CHLORIDE 0.9% 100 ML IV SCH ×3 (04:36→21:51)
[2019-06-04 05:46] LABS: Basophils % 0.1 % (0.0-0.8); Eosinophils # 0.1 10*3/uL (0.0-0.87); Eosinophils % 1.5 % (0.00-10.9); Hematocrit 26.1 VOL% (35.7-47.0); Hemoglobin 8.2 GM/DL (12.0-16.0); Immature Granulocytes % 0.8 %; Immature Granulocytes Absolute 0.06 #; Lymphocytes # 1.3 10*3/uL (1.4-4.0); Mean Corpuscular HGB Conc 31.4 GM/DL (32-36); Mean Corpuscular Volume 78.9 FL (87-102); Mean Platelet Volume 11.1 FL (9.6-12.0); Monocytes % 7.1 % (1.7-12.7); Neutrophils % 72.5 % (38.7-73.9); Platelet Count 139 T/CUMM (130-400); Red Blood Count 3.31 MC/CUMM (3.8-5.5); Red Cell Distribution Width 14.7 % (9.3-17.3); White Blood Count 7.4 T/CUMM (4-12)
[2019-06-04 06:08] LABS: Calcium 7.6 MG/DL (8.5-10.1)
[2019-06-04] MEDS: CETIRIZINE 10 MG TABLET PO SCH (10:39)
[2019-06-04] MEDS: FLUTICASONE 50 MCG NASAL SPRAY 16 GM BOTTLE BOTH NARES SCH (10:39)
[2019-06-04] MEDS: DEXAMETHASONE 0.1% OPH SOLN 5 ML BOTTLE RIGHT EAR SCH ×2 (10:39→21:50)
[2019-06-04] MEDS: FUROSEMIDE 40 MG TABLET PO SCH (10:40)
[2019-06-04] MEDS: PANTOPRAZOLE 40 MG TABLET PO SCH (10:40)
[2019-06-04] MEDS: MECLIZINE 12.5 MG TABLET PO SCH ×2 (10:40→21:49)
[2019-06-04] MEDS: POTASSIUM CHLORIDE 8 MEQ CAPSULE PO SCH ×2 (10:40→21:51)
[2019-06-04] MEDS: MAGNESIUM OXIDE 400 MG TABLET PO SCH ×3 (10:40→21:50)
[2019-06-04] MEDS: ATENOLOL 25 MG TABLET PO SCH ×2 (10:41→21:51)
[2019-06-04] MEDS: TAMSULOSIN 0.4 MG CAPSULE PO SCH ×2 (10:41→21:50)
[2019-06-04] MEDS: ACETAMINOPHEN 325 MG TABLET PO PRN (10:58)
[2019-06-04] MEDS ORDERED: POTASSIUM CHLORIDE 20 MEQ/15 ML UDCUP PO SCH (12:00)
[2019-06-05] MEDS: INSULIN REGULAR 100 UNIT/ML SUBCUT SCH ×4 (01:05→18:30)
[2019-06-05] MEDS: SODIUM CHLORIDE 0.9% 1,000 ML IV SCH ×4 (04:41→22:03)
[2019-06-05] MEDS ORDERED: POTASSIUM CHLORIDE 20 MEQ/15 ML UDCUP PO ONE (05:00)
[2019-06-05] MEDS: MEROPENEM 1,000 MG in SODIUM CHLORIDE 0.9% 100 ML IV SCH ×2 (05:07→14:30)
[2019-06-05 06:05] LABS: Basophils % 0.3 % (0.0-0.8); Eosinophils # 0.2 10*3/uL (0.0-0.87); Eosinophils % 2.6 % (0.00-10.9); Hematocrit 28.2 VOL% (35.7-47.0); Hemoglobin 8.8 GM/DL (12.0-16.0); Immature Granulocytes % 0.5 %; Immature Granulocytes Absolute 0.03 #; Lymphocytes # 1.6 10*3/uL (1.4-4.0); Lymphocytes % 25.7 % (21.3-54.2); Mean Corpuscular HGB Conc 31.2 GM/DL (32-36); Mean Corpuscular Volume 79.2 FL (87-102); Mean Platelet Volume 10.8 FL (9.6-12.0); Monocytes % 7.4 % (1.7-12.7); Neutrophils % 63.5 % (38.7-73.9); Platelet Count 164 T/CUMM (130-400); Red Blood Count 3.56 MC/CUMM (3.8-5.5); Red Cell Distribution Width 14.7 % (9.3-17.3); White Blood Count 6.2 T/CUMM (4-12)
[2019-06-05 06:15] LABS: Calcium 8.2 MG/DL (8.5-10.1); Osmolality,Calculated 287.8 MOS/KG (273-304)
[2019-06-05 07:51] LABS: Band Neutrophils 1 % (0-10); Eosinophils 3 % (0-10); Hypochromasia 2+; Lymphocytes 22 % (20-55); Microcytosis 1+; Ovalocytes Few; Platelet Estimate Adequate; Polychromasia Slight; Segmented Neutrophils 68 % (50-85); Total Cells Counted 100
[2019-06-05] MEDS ORDERED: MAGNESIUM SULF RIDER 4 GM in PREMIX 1 EACH IV ONE (07:58)
[2019-06-05] MEDS: MAGNESIUM OXIDE 400 MG TABLET PO SCH ×3 (09:16→21:57)
[2019-06-05] MEDS: CETIRIZINE 10 MG TABLET PO SCH (09:16)
[2019-06-05] MEDS: ATENOLOL 25 MG TABLET PO SCH ×2 (09:16→21:56)
[2019-06-05] MEDS: FLUTICASONE 50 MCG NASAL SPRAY 16 GM BOTTLE BOTH NARES SCH (09:16)
[2019-06-05] MEDS: MECLIZINE 12.5 MG TABLET PO SCH ×2 (09:16→21:57)
[2019-06-05] MEDS: POTASSIUM CHLORIDE 8 MEQ CAPSULE PO SCH ×2 (09:16→21:57)
[2019-06-05] MEDS: TAMSULOSIN 0.4 MG CAPSULE PO SCH ×2 (09:16→21:57)
[2019-06-05] MEDS: PANTOPRAZOLE 40 MG TABLET PO SCH (09:16)
[2019-06-05] MEDS: FUROSEMIDE 40 MG TABLET PO SCH (09:16)
[2019-06-05] MEDS: DEXAMETHASONE 0.1% OPH SOLN 5 ML BOTTLE RIGHT EAR SCH ×2 (09:17→21:58)
[2019-06-05] MEDS: cefTRIAXone 1,000 MG in SYRINGE 1 EACH IV SCH (14:30)
[2019-06-06] MEDS: INSULIN REGULAR 100 UNIT/ML SUBCUT SCH ×4 (00:39→19:30)
[2019-06-06] MEDS ORDERED: ALBUTEROL/IPRATROPIUM 3 ML NEB RESP TX PRN (02:58)
[2019-06-06 08:51] LABS: Basophils % 0.3 % (0.0-0.8); Eosinophils # 0.1 10*3/uL (0.0-0.87); Eosinophils % 1.5 % (0.00-10.9); Hematocrit 26.8 VOL% (35.7-47.0); Hemoglobin 8.4 GM/DL (12.0-16.0); Immature Granulocytes % 0.3 %; Immature Granulocytes Absolute 0.02 #; Lymphocytes # 1.7 10*3/uL (1.4-4.0); Lymphocytes % 25.9 % (21.3-54.2); Mean Corpuscular HGB Conc 31.3 GM/DL (32-36); Mean Corpuscular Volume 79.1 FL (87-102); Mean Platelet Volume 10.9 FL (9.6-12.0); Monocytes % 6.9 % (1.7-12.7); Neutrophils % 65.1 % (38.7-73.9); Platelet Count 172 T/CUMM (130-400); Red Blood Count 3.39 MC/CUMM (3.8-5.5); Red Cell Distribution Width 14.7 % (9.3-17.3); White Blood Count 6.7 T/CUMM (4-12)
[2019-06-06] MEDS: FLUTICASONE 50 MCG NASAL SPRAY 16 GM BOTTLE BOTH NARES SCH (09:15)
[2019-06-06] MEDS: SODIUM CHLORIDE 0.9% 1,000 ML IV SCH ×3 (09:15→23:33)
[2019-06-06] MEDS: MECLIZINE 12.5 MG TABLET PO SCH ×2 (09:16→21:49)
[2019-06-06] MEDS: MAGNESIUM OXIDE 400 MG TABLET PO SCH ×3 (09:16→21:47)
[2019-06-06] MEDS: ATENOLOL 25 MG TABLET PO SCH ×2 (09:16→21:47)
[2019-06-06] MEDS: DEXAMETHASONE 0.1% OPH SOLN 5 ML BOTTLE RIGHT EAR SCH ×2 (09:16→21:47)
[2019-06-06] MEDS: TAMSULOSIN 0.4 MG CAPSULE PO SCH ×2 (09:16→21:49)
[2019-06-06] MEDS: ACETAMINOPHEN 325 MG TABLET PO PRN (09:16)
[2019-06-06] MEDS: CETIRIZINE 10 MG TABLET PO SCH (09:16)
[2019-06-06 09:17] LABS: Eosinophils 1 % (0-10); Lymphocytes 21 % (20-55); Segmented Neutrophils 70 % (50-85); Total Cells Counted 100
[2019-06-06] MEDS: PANTOPRAZOLE 40 MG TABLET PO SCH (09:17)
[2019-06-06] MEDS: FUROSEMIDE 40 MG TABLET PO SCH (09:17)
[2019-06-06] MEDS: POTASSIUM CHLORIDE 8 MEQ CAPSULE PO SCH ×2 (09:17→21:47)
[2019-06-06 09:18] LABS: Atypical Lymphocytes Few; Calcium 8.1 MG/DL (8.5-10.1); Giant Platelets Few; Hypochromasia 2+; Microcytosis 2+; Ovalocytes Few
[2019-06-06 09:19] LABS: Platelet Estimate Adequate
[2019-06-06] MEDS: cefTRIAXone 1,000 MG in SYRINGE 1 EACH IV SCH (16:09)
[2019-06-06] MEDS: MORPHINE 4 MG/1 ML VIAL IV PRN (22:39)
[2019-06-06] MEDS: diphenhydrAMINE 50 MG/1 ML VIAL IV PRN (22:39)
[2019-06-07] MEDS: INSULIN REGULAR 100 UNIT/ML SUBCUT SCH ×4 (00:52→19:34)
[2019-06-07 05:35] LABS: Basophils % 0.1 % (0.0-0.8); Eosinophils # 0.1 10*3/uL (0.0-0.87); Eosinophils % 1.6 % (0.00-10.9); Hematocrit 26.3 VOL% (35.7-47.0); Hemoglobin 8.1 GM/DL (12.0-16.0); Immature Granulocytes % 0.6 %; Immature Granulocytes Absolute 0.04 #; Lymphocytes # 1.9 10*3/uL (1.4-4.0); Lymphocytes % 28.2 % (21.3-54.2); Mean Corpuscular HGB Conc 30.8 GM/DL (32-36); Mean Corpuscular Volume 80.4 FL (87-102); Mean Platelet Volume 10.9 FL (9.6-12.0); Monocytes % 7.9 % (1.7-12.7); Neutrophils % 61.6 % (38.7-73.9); Platelet Count 176 T/CUMM (130-400); Red Blood Count 3.27 MC/CUMM (3.8-5.5); Red Cell Distribution Width 14.8 % (9.3-17.3); White Blood Count 6.9 T/CUMM (4-12)
[2019-06-07 06:08] LABS: Calcium 8.2 MG/DL (8.5-10.1)
[2019-06-07] MEDS: SODIUM CHLORIDE 0.9% 1,000 ML IV SCH (06:30)
[2019-06-07] MEDS: FUROSEMIDE 40 MG TABLET PO SCH (09:00)
[2019-06-07] MEDS: DEXAMETHASONE 0.1% OPH SOLN 5 ML BOTTLE RIGHT EAR SCH ×2 (09:00→21:45)
[2019-06-07] MEDS: MAGNESIUM OXIDE 400 MG TABLET PO SCH ×3 (09:00→21:45)
[2019-06-07] MEDS: PANTOPRAZOLE 40 MG TABLET PO SCH (09:00)
[2019-06-07] MEDS: MECLIZINE 12.5 MG TABLET PO SCH ×2 (09:00→21:45)
[2019-06-07] MEDS: POTASSIUM CHLORIDE 8 MEQ CAPSULE PO SCH ×2 (09:00→21:45)
[2019-06-07] MEDS: TAMSULOSIN 0.4 MG CAPSULE PO SCH ×2 (09:00→21:46)
[2019-06-07] MEDS: FLUTICASONE 50 MCG NASAL SPRAY 16 GM BOTTLE BOTH NARES SCH (09:00)
[2019-06-07] MEDS: CETIRIZINE 10 MG TABLET PO SCH (09:00)
[2019-06-07] MEDS: ATENOLOL 25 MG TABLET PO SCH ×2 (09:47→21:45)
[2019-06-07] MEDS ORDERED: cefTRIAXone 1,000 MG in SYRINGE 1 EACH IV ONE (12:39)
[2019-06-07] MEDS: ASPIRIN EC 81 MG TABLET PO SCH (12:53)
[2019-06-07] MEDS: cefTRIAXone 1,000 MG in SYRINGE 1 EACH IV SCH (13:30)
[2019-06-07] MEDS ORDERED: LACTATED RINGERS 1,000 ML IV SCH (14:00)
[2019-06-07] MEDS ORDERED: SUGAMMADEX 200 MG/2 ML VIAL IV ONE (14:43)
[2019-06-07] MEDS ORDERED: PHENYLEPHRINE DRIP 20 MG/250 ML PREMIX IV ONE (15:14)
[2019-06-07] MEDS ORDERED: fentaNYL 100 MCG/2 ML VIAL ONE (15:14)
[2019-06-07] MEDS ORDERED: LIDOCAINE 100 MG/5 ML SYRINGE ONE (15:14)
[2019-06-07] MEDS ORDERED: SEVOFLURANE 1 UNIT/15 MINUTE INH ONE (15:14)
[2019-06-07] MEDS ORDERED: ONDANSETRON 4 MG/2 ML VIAL ONE (15:15)
[2019-06-07] MEDS ORDERED: ETOMIDATE 40 MG/20 ML VIAL IV ONE (15:15)
[2019-06-07] MEDS ORDERED: ROCURONIUM 100 MG/10 ML VIAL IV ONE (15:15)
[2019-06-07] MEDS: MORPHINE 10 MG/1 ML VIAL IV PRN ×2 (15:20→15:25)
[2019-06-07] MEDS: ACETAMINOPHEN 325 MG TABLET PO PRN ×2 (18:10→22:10)
[2019-06-07] MEDS: SIMVASTATIN 10 MG TABLET PO SCH (21:45)
[2019-06-08] MEDS: INSULIN REGULAR 100 UNIT/ML SUBCUT SCH ×4 (01:21→19:34)
[2019-06-08] MEDS: SODIUM CHLORIDE 0.9% 1,000 ML IV SCH ×4 (01:25→21:24)
[2019-06-08 04:49] LABS: Basophils % 0.1 % (0.0-0.8); Eosinophils # 0.1 10*3/uL (0.0-0.87); Eosinophils % 1.4 % (0.00-10.9); Hematocrit 27.6 VOL% (35.7-47.0); Hemoglobin 8.5 GM/DL (12.0-16.0); Immature Granulocytes % 0.7 %; Immature Granulocytes Absolute 0.06 #; Lymphocytes # 1.5 10*3/uL (1.4-4.0); Lymphocytes % 18.9 % (21.3-54.2); Mean Corpuscular HGB Conc 30.8 GM/DL (32-36); Mean Corpuscular Volume 79.5 FL (87-102); Mean Platelet Volume 10.8 FL (9.6-12.0); Monocytes % 8.3 % (1.7-12.7); Neutrophils % 70.6 % (38.7-73.9); Platelet Count 217 T/CUMM (130-400); Red Blood Count 3.47 MC/CUMM (3.8-5.5); Red Cell Distribution Width 14.7 % (9.3-17.3); White Blood Count 8.1 T/CUMM (4-12)
[2019-06-08 05:17] LABS: Calcium 8.7 MG/DL (8.5-10.1); Osmolality,Calculated 283.3 MOS/KG (273-304)
[2019-06-08] MEDS: ACETAMINOPHEN 325 MG TABLET PO PRN ×2 (06:08→10:20)
[2019-06-08] MEDS: MECLIZINE 12.5 MG TABLET PO SCH ×2 (10:18→21:08)
[2019-06-08] MEDS: TAMSULOSIN 0.4 MG CAPSULE PO SCH ×2 (10:19→21:09)
[2019-06-08] MEDS: FUROSEMIDE 40 MG TABLET PO SCH (10:19)
[2019-06-08] MEDS: ASPIRIN EC 81 MG TABLET PO SCH (10:19)
[2019-06-08] MEDS: MAGNESIUM OXIDE 400 MG TABLET PO SCH ×3 (10:19→21:09)
[2019-06-08] MEDS: PANTOPRAZOLE 40 MG TABLET PO SCH (10:20)
[2019-06-08] MEDS: POTASSIUM CHLORIDE 8 MEQ CAPSULE PO SCH ×2 (10:20→21:08)
[2019-06-08] MEDS: ATENOLOL 25 MG TABLET PO SCH ×2 (10:20→21:09)
[2019-06-08] MEDS: CETIRIZINE 10 MG TABLET PO SCH (10:20)
[2019-06-08] MEDS: DEXAMETHASONE 0.1% OPH SOLN 5 ML BOTTLE RIGHT EAR SCH ×2 (10:30→21:09)
[2019-06-08] MEDS: FLUTICASONE 50 MCG NASAL SPRAY 16 GM BOTTLE BOTH NARES SCH (10:30)
[2019-06-08] MEDS: MORPHINE 4 MG/1 ML VIAL IV PRN (12:41)
[2019-06-08] MEDS: cefTRIAXone 1,000 MG in SYRINGE 1 EACH IV SCH (13:41)
[2019-06-08] MEDS: oxyCODONE/ACETAMINOPHEN 5-325 MG TABLET PO PRN (14:37)
[2019-06-08] MEDS: SIMVASTATIN 10 MG TABLET PO SCH (21:09)
[2019-06-09] MEDS: INSULIN REGULAR 100 UNIT/ML SUBCUT SCH ×4 (00:47→18:13)
[2019-06-09 04:40] LABS: Basophils % 0.2 % (0.0-0.8); Eosinophils % 0.4 % (0.00-10.9); Hematocrit 26.7 VOL% (35.7-47.0); Hemoglobin 8.3 GM/DL (12.0-16.0); Immature Granulocytes % 0.6 %; Immature Granulocytes Absolute 0.05 #; Lymphocytes # 1.1 10*3/uL (1.4-4.0); Lymphocytes % 12.9 % (21.3-54.2); Mean Corpuscular HGB Conc 31.1 GM/DL (32-36); Mean Corpuscular Volume 79.2 FL (87-102); Monocytes % 4.8 % (1.7-12.7); Neutrophils % 81.1 % (38.7-73.9); Platelet Count 211 T/CUMM (130-400); Red Blood Count 3.37 MC/CUMM (3.8-5.5); Red Cell Distribution Width 14.7 % (9.3-17.3); White Blood Count 8.4 T/CUMM (4-12)
[2019-06-09 05:14] LABS: Calcium 8.5 MG/DL (8.5-10.1); Osmolality,Calculated 282.5 MOS/KG (273-304)
[2019-06-09] MEDS: PANTOPRAZOLE 40 MG TABLET PO SCH (09:19)
[2019-06-09] MEDS: ATENOLOL 25 MG TABLET PO SCH ×2 (09:19→22:32)
[2019-06-09] MEDS: CETIRIZINE 10 MG TABLET PO SCH (09:19)
[2019-06-09] MEDS: oxyCODONE/ACETAMINOPHEN 5-325 MG TABLET PO PRN ×2 (09:20→18:12)
[2019-06-09] MEDS: POTASSIUM CHLORIDE 8 MEQ CAPSULE PO SCH ×2 (09:20→22:32)
[2019-06-09] MEDS: MAGNESIUM OXIDE 400 MG TABLET PO SCH ×3 (09:20→22:30)
[2019-06-09] MEDS: ASPIRIN EC 81 MG TABLET PO SCH (09:20)
[2019-06-09] MEDS: MECLIZINE 12.5 MG TABLET PO SCH ×2 (09:20→22:31)
[2019-06-09] MEDS: FUROSEMIDE 40 MG TABLET PO SCH (09:20)
[2019-06-09] MEDS: FLUTICASONE 50 MCG NASAL SPRAY 16 GM BOTTLE BOTH NARES SCH (09:27)
[2019-06-09] MEDS: TAMSULOSIN 0.4 MG CAPSULE PO SCH ×2 (09:27→22:31)
[2019-06-09] MEDS: DEXAMETHASONE 0.1% OPH SOLN 5 ML BOTTLE RIGHT EAR SCH ×2 (09:27→22:32)
[2019-06-09] MEDS: SODIUM CHLORIDE 0.9% 1,000 ML IV SCH ×2 (11:48→18:13)
[2019-06-09] MEDS: cefTRIAXone 1,000 MG in SYRINGE 1 EACH IV SCH (13:46)
[2019-06-09] MEDS: SIMVASTATIN 10 MG TABLET PO SCH (22:32)
[2019-06-10] MEDS: INSULIN REGULAR 100 UNIT/ML SUBCUT SCH ×4 (00:01→17:46)
[2019-06-10 05:56] LABS: Eosinophils # 0.1 10*3/uL (0.0-0.87); Hematocrit 26.1 VOL% (35.7-47.0); Hemoglobin 7.9 GM/DL (12.0-16.0); Immature Granulocytes % 0.5 %; Immature Granulocytes Absolute 0.04 #; Lymphocytes # 1.4 10*3/uL (1.4-4.0); Lymphocytes % 17.4 % (21.3-54.2); Mean Corpuscular HGB Conc 30.3 GM/DL (32-36); Mean Corpuscular Volume 79.8 FL (87-102); Mean Platelet Volume 10.7 FL (9.6-12.0); Neutrophils % 74.1 % (38.7-73.9); Platelet Count 190 T/CUMM (130-400); Red Blood Count 3.27 MC/CUMM (3.8-5.5); Red Cell Distribution Width 14.7 % (9.3-17.3); White Blood Count 8.3 T/CUMM (4-12)
[2019-06-10] MEDS: oxyCODONE/ACETAMINOPHEN 5-325 MG TABLET PO PRN (06:04)
[2019-06-10 06:11] LABS: Calcium 8.2 MG/DL (8.5-10.1); Osmolality,Calculated 283.5 MOS/KG (273-304)
[2019-06-10] MEDS: ASPIRIN EC 81 MG TABLET PO SCH (08:43)
[2019-06-10] MEDS: MAGNESIUM OXIDE 400 MG TABLET PO SCH ×3 (08:43→21:46)
[2019-06-10] MEDS: DEXAMETHASONE 0.1% OPH SOLN 5 ML BOTTLE RIGHT EAR SCH ×2 (08:43→21:47)
[2019-06-10] MEDS: FLUTICASONE 50 MCG NASAL SPRAY 16 GM BOTTLE BOTH NARES SCH (08:43)
[2019-06-10] MEDS: PANTOPRAZOLE 40 MG TABLET PO SCH (08:44)
[2019-06-10] MEDS: MECLIZINE 12.5 MG TABLET PO SCH ×2 (08:44→21:46)
[2019-06-10] MEDS: POTASSIUM CHLORIDE 8 MEQ CAPSULE PO SCH ×2 (08:44→21:46)
[2019-06-10] MEDS: CETIRIZINE 10 MG TABLET PO SCH (08:44)
[2019-06-10] MEDS: ATENOLOL 25 MG TABLET PO SCH ×2 (08:44→21:46)
[2019-06-10] MEDS: TAMSULOSIN 0.4 MG CAPSULE PO SCH ×2 (08:44→21:46)
[2019-06-10] MEDS: SODIUM CHLORIDE 0.9% 1,000 ML IV SCH (13:10)
[2019-06-10] MEDS: cefTRIAXone 1,000 MG in SYRINGE 1 EACH IV SCH (17:35)
[2019-06-10] MEDS: SIMVASTATIN 10 MG TABLET PO SCH (21:45)
[2019-06-10] MEDS: ACETAMINOPHEN 325 MG TABLET PO PRN (21:46)
[2019-06-11] MEDS: INSULIN REGULAR 100 UNIT/ML SUBCUT SCH ×3 (00:40→12:40)
[2019-06-11 05:24] LABS: Basophils % 0.1 % (0.0-0.8); Eosinophils # 0.1 10*3/uL (0.0-0.87); Eosinophils % 1.5 % (0.00-10.9); Hematocrit 24.9 VOL% (35.7-47.0); Hemoglobin 7.7 GM/DL (12.0-16.0); Immature Granulocytes % 0.4 %; Immature Granulocytes Absolute 0.03 #; Lymphocytes # 1.4 10*3/uL (1.4-4.0); Lymphocytes % 20.7 % (21.3-54.2); Mean Corpuscular HGB Conc 30.9 GM/DL (32-36); Mean Corpuscular Volume 79.8 FL (87-102); Monocytes % 8.3 % (1.7-12.7); Platelet Count 196 T/CUMM (130-400); Red Blood Count 3.12 MC/CUMM (3.8-5.5); Red Cell Distribution Width 14.6 % (9.3-17.3); White Blood Count 6.7 T/CUMM (4-12)
[2019-06-11 05:44] LABS: Calcium 8.3 MG/DL (8.5-10.1); Osmolality,Calculated 284.7 MOS/KG (273-304)
[2019-06-11] MEDS: oxyCODONE/ACETAMINOPHEN 5-325 MG TABLET PO PRN ×2 (06:24→12:45)
[2019-06-11] MEDS: POTASSIUM CHLORIDE 8 MEQ CAPSULE PO SCH (08:45)
[2019-06-11] MEDS: MECLIZINE 12.5 MG TABLET PO SCH (08:45)
[2019-06-11] MEDS: ASPIRIN EC 81 MG TABLET PO SCH (08:45)
[2019-06-11] MEDS: TAMSULOSIN 0.4 MG CAPSULE PO SCH (08:45)
[2019-06-11] MEDS: MAGNESIUM OXIDE 400 MG TABLET PO SCH (08:46)
[2019-06-11] MEDS: CETIRIZINE 10 MG TABLET PO SCH (08:46)
[2019-06-11] MEDS: ATENOLOL 25 MG TABLET PO SCH (08:46)
[2019-06-11] MEDS: PANTOPRAZOLE 40 MG TABLET PO SCH (08:46)
[2019-06-11] MEDS: MORPHINE 4 MG/1 ML VIAL IV PRN (08:47)
[2019-06-11] MEDS: DEXAMETHASONE 0.1% OPH SOLN 5 ML BOTTLE RIGHT EAR SCH (09:02)
[2019-06-11] MEDS: FLUTICASONE 50 MCG NASAL SPRAY 16 GM BOTTLE BOTH NARES SCH (09:02)
[2019-06-11 11:56] LABS: Stone Analysis Interpretation 100% Uric acid; Stone Source Right Ureter
[2019-06-11 12:25] VITALS: BP 127/68
== END 2019-06-11 13:40 | DRG 660 ==
LOC: N.EDINP 13:37 → N.ED 13:37 → N.3E 19:53
PROVIDERS: ADMIT Internal Medicine; ATTEND Internal Medicine

== ENCOUNTER 2019-06-15 16:56 | Inpatient (IN) ==
[2019-06-15] MEDS ORDERED: SODIUM CHLORIDE 0.9% 500 ML IV STA (17:27)
[2019-06-15] MEDS ORDERED: ACETAMINOPHEN 500 MG TABLET PO STA (17:27)
[2019-06-15] MEDS ORDERED: ONDANSETRON 4 MG/2 ML VIAL IV STA (17:27)
[2019-06-15 18:32] LABS: Hematocrit 26.8 VOL% (35.7-47.0); Hemoglobin 8.3 GM/DL (12.0-16.0); Immature Granulocytes % 0.7 %; Immature Granulocytes Absolute 0.03 #; Lymphocytes # 0.7 10*3/uL (1.4-4.0); Lymphocytes % 15.1 % (21.3-54.2); Mean Corpuscular Volume 78.8 FL (87-102); Mean Platelet Volume 10.2 FL (9.6-12.0); Monocytes % 5.4 % (1.7-12.7); Neutrophils % 78.8 % (38.7-73.9); Platelet Count 245 T/CUMM (130-400); Red Cell Distribution Width 14.6 % (9.3-17.3); White Blood Count 4.4 T/CUMM (4-12)
[2019-06-15 18:37] LABS: Albumin 2.3 G/DL (3.4-5.0); Bilirubin,Total 1.1 MG/DL (0.2-1.0); Calcium 8.5 MG/DL (8.5-10.1); Osmolality,Calculated 280.8 MOS/KG (273-304); Total Protein 7.1 G/DL (6.4-8.3)
[2019-06-15 19:37] LABS: Sedimentation Rate-Westergren 122 MM/HR (0-30)
[2019-06-15] MEDS ORDERED: FUROSEMIDE 40 MG/4 ML VIAL IV STA (19:41)
[2019-06-15] MEDS ORDERED: DOXYCYCLINE HYCLATE INJ 100 MG in SODIUM CHLORIDE 0.9% 100 ML IV STA (19:48)
[2019-06-15 20:20] LABS: Apearance,Urine CLEAR (Clear); Bilirubin,Urine Negative (Negative); Blood, Urine Moderate mg/dL (Negative); Glucose,Urine (UA) Negative (Negative); Ketones,Urine Negative (Negative); Nitrite,Urine Negative (Negative); Protein,Urine 30 MG/DL; RBC,Urine 37 /HPF (0-4); Squamous Epithelial Cell,Urine Occasional /HPF (0-10); Urine Color Yellow (Yellow); Urine Specific Gravity 1.013 (1.001-1.035); Urine Urobilinogen < 2.0 EU/DL (0.2-1.0); WBC,Urine 3 /HPF (0-6)
[2019-06-15] MEDS ORDERED: MAGNESIUM SULF RIDER 4 GM in PREMIX 1 EACH IV PRN (21:07)
[2019-06-15] MEDS ORDERED: ONDANSETRON 4 MG/2 ML VIAL IV PRN (21:07)
[2019-06-15] MEDS ORDERED: GLUCAGON 1 MG VIAL IM PRN ×2 (21:07)
[2019-06-15] MEDS ORDERED: DEXTROSE 50% 25 GM/50 ML VIAL IV PRN ×2 (21:07)
[2019-06-15] MEDS ORDERED: ALBUTEROL/IPRATROPIUM 3 ML NEB RESP TX ONE (22:22)
[2019-06-15] MEDS ORDERED: methylPREDNISolone SOD SUC 125 MG/2 ML VIAL IV ONE (22:27)
[2019-06-15] MEDS ORDERED: ACETAMINOPHEN 500 MG TABLET PO ONE (22:55)
[2019-06-15] MEDS ORDERED: VANCOMYCIN INJ 1,000 MG in SODIUM CHLORIDE 0.9% 250 ML IV SCH (23:00)
[2019-06-15] MEDS: MEROPENEM 1,000 MG in SODIUM CHLORIDE 0.9% 100 ML IV SCH (23:43)
[2019-06-16] MEDS ORDERED: INFLUENZA VIRUS VACCINE 0.5 ML SYRINGE IM ONE
[2019-06-16] MEDS: ATENOLOL 25 MG TABLET PO SCH ×3 (00:06→22:06)
[2019-06-16] MEDS: MAGNESIUM OXIDE 400 MG TABLET PO SCH ×3 (00:06→22:07)
[2019-06-16] MEDS: MECLIZINE 25 MG TABLET PO SCH ×3 (00:07→22:07)
[2019-06-16] MEDS: INSULIN LISPRO 100 UNIT/ML SUBCUT SCH ×5 (00:07→22:08)
[2019-06-16] MEDS: SODIUM CHLORIDE 0.9% 1,000 ML IV SCH (00:10)
[2019-06-16] MEDS: MORPHINE 4 MG/1 ML VIAL IV PRN (00:34)
[2019-06-16 05:56] LABS: Basophils % 0.3 % (0.0-0.8); Hematocrit 24.3 VOL% (35.7-47.0); Hemoglobin 7.6 GM/DL (12.0-16.0); Immature Granulocytes % 0.5 %; Immature Granulocytes Absolute 0.02 #; Lymphocytes # 0.4 10*3/uL (1.4-4.0); Lymphocytes % 10.7 % (21.3-54.2); Mean Corpuscular HGB Conc 31.3 GM/DL (32-36); Mean Corpuscular Volume 77.6 FL (87-102); Mean Platelet Volume 10.6 FL (9.6-12.0); Monocytes % 2.9 % (1.7-12.7); Neutrophils % 85.6 % (38.7-73.9); Platelet Count 205 T/CUMM (130-400); Red Blood Count 3.13 MC/CUMM (3.8-5.5); Red Cell Distribution Width 14.6 % (9.3-17.3); White Blood Count 3.8 T/CUMM (4-12)
[2019-06-16 06:25] LABS: Calcium 8.4 MG/DL (8.5-10.1); Osmolality,Calculated 282.7 MOS/KG (273-304)
[2019-06-16 06:27] LABS: Hypochromasia 1+; Platelet Estimate Adequate
[2019-06-16] MEDS ORDERED: DEXAMETHASONE 0.1% OPH SOLN 5 ML BOTTLE RIGHT EAR SCH (09:00)
[2019-06-16] MEDS: TAMSULOSIN 0.4 MG CAPSULE PO SCH ×2 (09:36→22:07)
[2019-06-16] MEDS: CETIRIZINE 10 MG TABLET PO SCH (09:36)
[2019-06-16] MEDS: ASPIRIN EC 81 MG TABLET PO SCH (09:36)
[2019-06-16] MEDS: POTASSIUM CHLORIDE 8 MEQ CAPSULE PO SCH ×2 (09:36→22:05)
[2019-06-16] MEDS: FUROSEMIDE 20 MG/2 ML VIAL IV SCH ×2 (09:37→15:30)
[2019-06-16] MEDS: PANTOPRAZOLE 40 MG VIAL IV SCH (09:38)
[2019-06-16] MEDS: MEROPENEM 1,000 MG in SODIUM CHLORIDE 0.9% 100 ML IV SCH ×2 (09:39→22:02)
[2019-06-16] MEDS: DOCUSATE SODIUM 100 MG CAPSULE PO SCH ×2 (09:39→22:06)
[2019-06-16] MEDS: MICAFUNGIN 100 MG in SODIUM CHLORIDE 0.9% 100 ML IV SCH (15:22)
[2019-06-16] MEDS ORDERED: SIMVASTATIN 10 MG TABLET PO SCH (21:00)
[2019-06-17] MEDS: SODIUM CHLORIDE 0.9% 1,000 ML IV SCH ×2 (05:55→13:57)
[2019-06-17] MEDS: INSULIN LISPRO 100 UNIT/ML SUBCUT SCH ×4 (07:46→21:33)
[2019-06-17] MEDS: FUROSEMIDE 20 MG/2 ML VIAL IV SCH (08:30)
[2019-06-17] MEDS: TAMSULOSIN 0.4 MG CAPSULE PO SCH ×2 (08:32→22:48)
[2019-06-17] MEDS: ATENOLOL 25 MG TABLET PO SCH ×2 (08:32→22:47)
[2019-06-17] MEDS: ASPIRIN EC 81 MG TABLET PO SCH (08:32)
[2019-06-17] MEDS: CETIRIZINE 10 MG TABLET PO SCH (08:32)
[2019-06-17] MEDS: POTASSIUM CHLORIDE 8 MEQ CAPSULE PO SCH ×2 (08:32→22:47)
[2019-06-17] MEDS: MAGNESIUM OXIDE 400 MG TABLET PO SCH (08:32)
[2019-06-17] MEDS: MECLIZINE 25 MG TABLET PO SCH ×2 (08:33→22:47)
[2019-06-17] MEDS: DOCUSATE SODIUM 100 MG CAPSULE PO SCH ×2 (08:33→22:47)
[2019-06-17] MEDS: PANTOPRAZOLE 40 MG VIAL IV SCH (09:01)
[2019-06-17] MEDS: MEROPENEM 1,000 MG in SODIUM CHLORIDE 0.9% 100 ML IV SCH ×2 (09:01→22:43)
[2019-06-17] MEDS: ACETAMINOPHEN 325 MG TABLET PO PRN ×2 (09:05→22:48)
[2019-06-17] MEDS: LIDOCAINE 5% PATCH TRANSDERM SCH (09:09)
[2019-06-17] MEDS: valACYclovir 500 MG TABLET PO SCH (09:09)
[2019-06-17 09:48] LABS: Ferritin 769.4 ng/ml (8-252)
[2019-06-17 10:00] LABS: Basophils % 0.2 % (0.0-0.8); Hematocrit 22.5 VOL% (35.7-47.0); Hemoglobin 7.1 GM/DL (12.0-16.0); Immature Granulocytes % 0.5 %; Immature Granulocytes Absolute 0.03 #; Lymphocytes # 1.1 10*3/uL (1.4-4.0); Mean Corpuscular HGB Conc 31.6 GM/DL (32-36); Mean Corpuscular Volume 76.8 FL (87-102); Monocytes % 6.6 % (1.7-12.7); Neutrophils % 75.7 % (38.7-73.9); Platelet Count 202 T/CUMM (130-400); Red Blood Count 2.93 MC/CUMM (3.8-5.5); Red Cell Distribution Width 14.6 % (9.3-17.3); White Blood Count 6.2 T/CUMM (4-12)
[2019-06-17 10:12] LABS: Alanine Aminotransferase 100 U/L (13-56); Albumin 1.9 G/DL (3.4-5.0); Alkaline Phosphatase 359 U/L (45-117); Aspartate Amino Transferase 87 U/L (0-37); Bilirubin,Indirect 0.2 MG/DL (0.0-1.0); Bilirubin,Total < 0.39 MG/DL (0.2-1.0); Total Protein 6.3 G/DL (6.4-8.3)
[2019-06-17 10:34] LABS: Anisocytosis 1+; Band Neutrophils 18 % (0-10); Lymphocytes 10 % (20-55); Platelet Estimate Normal; Segmented Neutrophils 65 % (50-85); Total Cells Counted 100
[2019-06-17] MEDS ORDERED: SODIUM CHLORIDE 0.9% 1,000 ML IV PRN (11:17)
[2019-06-17] MEDS: VANCOMYCIN INJ 1,500 MG in SODIUM CHLORIDE 0.9% 500 ML IV SCH (16:35)
[2019-06-17] MEDS ORDERED: FUROSEMIDE 20 MG/2 ML VIAL IV ONE ×2 (17:00→19:00)
[2019-06-17] MEDS: MORPHINE 4 MG/1 ML VIAL IV PRN (22:50)
[2019-06-18] MEDS: MICAFUNGIN 100 MG in SODIUM CHLORIDE 0.9% 100 ML IV SCH ×2 (00:09→16:10)
[2019-06-18 05:52] LABS: Basophils % 0.3 % (0.0-0.8); Eosinophils % 0.1 % (0.00-10.9); Hematocrit 30.7 VOL% (35.7-47.0); Hemoglobin 9.8 GM/DL (12.0-16.0); Immature Granulocytes Absolute 0.07 #; Lymphocytes # 1.5 10*3/uL (1.4-4.0); Lymphocytes % 20.8 % (21.3-54.2); Mean Corpuscular HGB Conc 31.9 GM/DL (32-36); Mean Corpuscular Volume 77.3 FL (87-102); Mean Platelet Volume 10.3 FL (9.6-12.0); Monocytes % 6.1 % (1.7-12.7); Neutrophils % 71.7 % (38.7-73.9); Platelet Count 180 T/CUMM (130-400); Red Blood Count 3.97 MC/CUMM (3.8-5.5); Red Cell Distribution Width 15.9 % (9.3-17.3); White Blood Count 7.3 T/CUMM (4-12)
[2019-06-18 06:21] LABS: Osmolality,Calculated 284.5 MOS/KG (273-304)
[2019-06-18 06:37] LABS: Anisocytosis 1+; Band Neutrophils 2 % (0-10); Hypochromasia Slight; Lymphocytes 24 % (20-55); Segmented Neutrophils 67 % (50-85); Total Cells Counted 100
[2019-06-18 06:38] LABS: Ovalocytes Few; Platelet Estimate Adequate
[2019-06-18] MEDS: INSULIN LISPRO 100 UNIT/ML SUBCUT SCH ×4 (08:27→23:55)
[2019-06-18 08:53] LABS: INR 1.1; PT Patient Result 12.4 SECS (9.6-12.2)
[2019-06-18] MEDS ORDERED: MIDAZOLAM 2 MG/2 ML VIAL IV ONE (09:00)
[2019-06-18] MEDS ORDERED: fentaNYL 100 MCG/2 ML VIAL IV ONE (09:00)
[2019-06-18] MEDS: ASPIRIN EC 81 MG TABLET PO SCH (10:13)
[2019-06-18] MEDS: TAMSULOSIN 0.4 MG CAPSULE PO SCH ×2 (10:13→21:23)
[2019-06-18] MEDS: MECLIZINE 25 MG TABLET PO SCH ×2 (10:13→21:26)
[2019-06-18] MEDS: DOCUSATE SODIUM 100 MG CAPSULE PO SCH ×2 (10:14→21:23)
[2019-06-18] MEDS: valACYclovir 500 MG TABLET PO SCH (10:14)
[2019-06-18] MEDS: ATENOLOL 25 MG TABLET PO SCH ×2 (10:14→21:23)
[2019-06-18] MEDS: POTASSIUM CHLORIDE 8 MEQ CAPSULE PO SCH ×2 (10:14→21:22)
[2019-06-18] MEDS: MEROPENEM 1,000 MG in SODIUM CHLORIDE 0.9% 100 ML IV SCH ×2 (10:56→21:23)
[2019-06-18] MEDS: LIDOCAINE 5% PATCH TRANSDERM SCH (10:56)
[2019-06-18] MEDS: SODIUM CHLORIDE 0.9% 1,000 ML IV SCH ×2 (10:57→16:52)
[2019-06-18] MEDS: PANTOPRAZOLE 40 MG VIAL IV SCH (10:57)
[2019-06-18] MEDS ORDERED: NOREPINEPHRINE 4 MG/4 ML VIAL IV ONE (13:26)
[2019-06-18] MEDS ORDERED: GLYCOPYRROLATE 0.4 MG/2 ML VIAL ONE (15:14)
[2019-06-18] MEDS ORDERED: fentaNYL 100 MCG/2 ML VIAL ONE (15:14)
[2019-06-18] MEDS ORDERED: diphenhydrAMINE 50 MG/1 ML VIAL ONE (15:14)
[2019-06-18] MEDS ORDERED: MIDAZOLAM 2 MG/2 ML VIAL ONE (15:14)
[2019-06-18] MEDS ORDERED: SEVOFLURANE 1 UNIT/15 MINUTE INH ONE (15:14)
[2019-06-18] MEDS ORDERED: LIDOCAINE 2% 5 ML VIAL ONE (15:14)
[2019-06-18] MEDS ORDERED: ETOMIDATE 40 MG/20 ML VIAL IV ONE (15:14)
[2019-06-18] MEDS ORDERED: PHENYLEPHRINE 1 MG/10 ML SYRINGE IV ONE (15:15)
[2019-06-18] MEDS ORDERED: ROCURONIUM 100 MG/10 ML VIAL IV ONE (15:15)
[2019-06-18] MEDS ORDERED: SUCCINYLCHOLINE 200 MG/10 ML VIAL ONE (15:15)
[2019-06-18 15:32] LABS: ABG Base Excess 1.2 MMOL/L (-2.5-2.5); ABG HCO3 25.5 MMOL/L (20-26); ABG Oxygen Saturation 98.5 % (95-100); ABG PCO2 42.2 MM HG (35-48); ABG TCO2 23.7 MMOL/L (23-27)
[2019-06-18 15:33] LABS: Allen Test Positive; Pt O2 Delivery Device Ventilator
[2019-06-18] MEDS: PROPOFOL 1,000 MG/100 ML BOTTLE IV SCH ×3 (15:59→21:21)
[2019-06-18] MEDS: VANCOMYCIN INJ 1,500 MG in SODIUM CHLORIDE 0.9% 500 ML IV SCH (17:18)
[2019-06-18] MEDS: fentaNYL INJ 1,250 MCG in SODIUM CHLORIDE 0.9% 225 ML IV PRN ×2 (17:58→21:28)
[2019-06-18] MEDS ORDERED: FUROSEMIDE 40 MG/4 ML VIAL IV ONE (20:45)
[2019-06-19] MEDS ORDERED: fentaNYL INJ 2,500 MCG in SODIUM CHLORIDE 0.9% 500 ML IV PRN
[2019-06-19] MEDS: PROPOFOL 1,000 MG/100 ML BOTTLE IV SCH (00:15)
[2019-06-19 03:44] LABS: Calcium 7.8 MG/DL (8.5-10.1); Osmolality,Calculated 286.3 MOS/KG (273-304)
[2019-06-19] MEDS ORDERED: fentaNYL INJ 2,500 MCG in SODIUM CHLORIDE 0.9% 450 ML IV PRN (04:00)
[2019-06-19 04:39] LABS: ABG HCO3 27.1 MMOL/L (20-26); ABG Oxygen Saturation 98.6 % (95-100); ABG PCO2 40.8 MM HG (35-48); ABG PH 7.436 (7.35-7.45); ABG TCO2 25.1 MMOL/L (23-27); Allen Test Positive; Pt O2 Delivery Device Ventilator
[2019-06-19] MEDS: SODIUM CHLORIDE 0.9% 1,000 ML IV SCH ×2 (05:33→13:05)
[2019-06-19] MEDS: INSULIN LISPRO 100 UNIT/ML SUBCUT SCH ×3 (06:05→17:12)
[2019-06-19] MEDS ORDERED: FUROSEMIDE 40 MG/4 ML VIAL IV ONE (07:49)
[2019-06-19] MEDS: IRON SUCROSE 200 MG in SODIUM CHLORIDE 0.9% 100 ML IV SCH (09:35)
[2019-06-19] MEDS: ASPIRIN EC 81 MG TABLET PO SCH (09:36)
[2019-06-19] MEDS: TAMSULOSIN 0.4 MG CAPSULE PO SCH ×2 (09:36→22:30)
[2019-06-19] MEDS: DOCUSATE SODIUM 100 MG CAPSULE PO SCH ×2 (09:36→22:40)
[2019-06-19] MEDS: LIDOCAINE 5% PATCH TRANSDERM SCH (09:36)
[2019-06-19] MEDS: MECLIZINE 25 MG TABLET PO SCH ×2 (09:36→22:29)
[2019-06-19] MEDS: MEROPENEM 1,000 MG in SODIUM CHLORIDE 0.9% 100 ML IV SCH ×2 (09:37→22:21)
[2019-06-19] MEDS: valACYclovir 500 MG TABLET PO SCH (09:37)
[2019-06-19] MEDS: PANTOPRAZOLE 40 MG VIAL IV SCH (09:37)
[2019-06-19] MEDS: ATENOLOL 25 MG TABLET PO SCH ×2 (09:37→22:44)
[2019-06-19] MEDS: POTASSIUM CHLORIDE 8 MEQ CAPSULE PO SCH ×2 (09:37→22:26)
[2019-06-19] MEDS: MORPHINE 4 MG/1 ML VIAL IV PRN ×2 (10:15→17:57)
[2019-06-19] MEDS ORDERED: PHENOL 1.4% THROAT SPRAY 177 ML BOTTLE PO PRN (14:28)
[2019-06-19] MEDS: MICAFUNGIN 100 MG in SODIUM CHLORIDE 0.9% 100 ML IV SCH (14:53)
[2019-06-19] MEDS: VANCOMYCIN INJ 1,500 MG in SODIUM CHLORIDE 0.9% 500 ML IV SCH (17:02)
[2019-06-19] MEDS: INSULIN GLARGINE 100 UNIT/ML SUBCUT SCH (22:55)
[2019-06-20] MEDS: INSULIN LISPRO 100 UNIT/ML SUBCUT SCH ×4 (01:14→17:57)
[2019-06-20] MEDS: SODIUM CHLORIDE 0.9% 1,000 ML IV SCH ×3 (03:21→22:10)
[2019-06-20 04:29] LABS: Basophils % 0.1 % (0.0-0.8); Eosinophils # 0.1 10*3/uL (0.0-0.87); Eosinophils % 1.4 % (0.00-10.9); Hematocrit 29.3 VOL% (35.7-47.0); Hemoglobin 9.1 GM/DL (12.0-16.0); Immature Granulocytes % 0.9 %; Immature Granulocytes Absolute 0.07 #; Lymphocytes % 25.8 % (21.3-54.2); Mean Corpuscular HGB Conc 31.1 GM/DL (32-36); Mean Corpuscular Volume 78.6 FL (87-102); Mean Platelet Volume 10.9 FL (9.6-12.0); Monocytes % 8.6 % (1.7-12.7); Neutrophils % 63.2 % (38.7-73.9); Platelet Count 207 T/CUMM (130-400); Red Blood Count 3.73 MC/CUMM (3.8-5.5); Red Cell Distribution Width 16.3 % (9.3-17.3); White Blood Count 7.9 T/CUMM (4-12)
[2019-06-20 05:12] LABS: Albumin 1.9 G/DL (3.4-5.0); Bilirubin,Total 0.9 MG/DL (0.2-1.0); Calcium 8.1 MG/DL (8.5-10.1); Osmolality,Calculated 285.1 MOS/KG (273-304); Total Protein 5.8 G/DL (6.4-8.3)
[2019-06-20 05:40] LABS: Anisocytosis Slight; Band Neutrophils 9 % (0-10); Eosinophils 1 % (0-10); Lymphocytes 31 % (20-55); Platelet Estimate Normal; Segmented Neutrophils 50 % (50-85); Total Cells Counted 100
[2019-06-20] MEDS: MAGNESIUM SULF RIDER 2 GM in PREMIX 1 EACH IV PRN (06:23)
[2019-06-20] MEDS: valACYclovir 500 MG TABLET PO SCH (09:30)
[2019-06-20] MEDS: ASPIRIN EC 81 MG TABLET PO SCH (09:30)
[2019-06-20] MEDS: ATENOLOL 25 MG TABLET PO SCH ×2 (09:30→21:45)
[2019-06-20] MEDS: LIDOCAINE 5% PATCH TRANSDERM SCH (09:30)
[2019-06-20] MEDS: PANTOPRAZOLE 40 MG VIAL IV SCH (09:30)
[2019-06-20] MEDS: MEROPENEM 1,000 MG in SODIUM CHLORIDE 0.9% 100 ML IV SCH ×2 (09:30→18:12)
[2019-06-20] MEDS: TAMSULOSIN 0.4 MG CAPSULE PO SCH ×2 (09:30→21:45)
[2019-06-20] MEDS: POTASSIUM CHLORIDE 8 MEQ CAPSULE PO SCH ×2 (09:30→21:45)
[2019-06-20] MEDS: DOCUSATE SODIUM 100 MG CAPSULE PO SCH ×2 (09:30→21:45)
[2019-06-20] MEDS: MECLIZINE 25 MG TABLET PO SCH ×2 (09:30→21:49)
[2019-06-20] MEDS: FUROSEMIDE 40 MG/4 ML VIAL IV SCH (09:35)
[2019-06-20] MEDS: IRON SUCROSE 200 MG in SODIUM CHLORIDE 0.9% 100 ML IV SCH (11:00)
[2019-06-20] MEDS: POTASSIUM CHLORIDE 20 MEQ TABLET PO PRN ×3 (14:37→18:12)
[2019-06-20] MEDS: MICAFUNGIN 100 MG in SODIUM CHLORIDE 0.9% 100 ML IV SCH (15:15)
[2019-06-20] MEDS: VANCOMYCIN INJ 1,500 MG in SODIUM CHLORIDE 0.9% 500 ML IV SCH (16:49)
[2019-06-20] MEDS: INSULIN GLARGINE 100 UNIT/ML SUBCUT SCH (21:44)
[2019-06-21] MEDS: INSULIN LISPRO 100 UNIT/ML SUBCUT SCH ×4 (00:16→19:04)
[2019-06-21] MEDS: MEROPENEM 1,000 MG in SODIUM CHLORIDE 0.9% 100 ML IV SCH ×3 (02:24→18:28)
[2019-06-21] MEDS: hydrALAZINE 20 MG/1 ML VIAL IV PRN ×2 (07:06→21:53)
[2019-06-21] MEDS: POTASSIUM CHLORIDE 20 MEQ TABLET PO PRN (07:18)
[2019-06-21] MEDS: GENTAMICIN INJ 120 MG in PREMIX 1 EACH IV SCH ×2 (08:41→23:32)
[2019-06-21] MEDS: POTASSIUM CHLORIDE 8 MEQ CAPSULE PO SCH ×2 (08:45→21:52)
[2019-06-21] MEDS: ATENOLOL 25 MG TABLET PO SCH ×2 (08:45→21:53)
[2019-06-21] MEDS: MECLIZINE 25 MG TABLET PO SCH ×2 (08:45→21:52)
[2019-06-21] MEDS: DOCUSATE SODIUM 100 MG CAPSULE PO SCH (08:46)
[2019-06-21] MEDS: LIDOCAINE 5% PATCH TRANSDERM SCH (08:46)
[2019-06-21] MEDS: ASPIRIN EC 81 MG TABLET PO SCH (08:46)
[2019-06-21] MEDS: TAMSULOSIN 0.4 MG CAPSULE PO SCH ×2 (08:46→21:53)
[2019-06-21] MEDS: valACYclovir 500 MG TABLET PO SCH (08:46)
[2019-06-21] MEDS: FUROSEMIDE 40 MG/4 ML VIAL IV SCH (08:46)
[2019-06-21] MEDS: PANTOPRAZOLE 40 MG VIAL IV SCH (08:48)
[2019-06-21] MEDS: MORPHINE 4 MG/1 ML VIAL IV PRN (09:04)
[2019-06-21] MEDS: IRON SUCROSE 200 MG in SODIUM CHLORIDE 0.9% 100 ML IV SCH (09:58)
[2019-06-21] MEDS: MICAFUNGIN 100 MG in SODIUM CHLORIDE 0.9% 100 ML IV SCH (16:56)
[2019-06-21] MEDS: SODIUM CHLORIDE 0.9% 1,000 ML IV SCH ×2 (18:33→21:45)
[2019-06-21] MEDS: INSULIN GLARGINE 100 UNIT/ML SUBCUT SCH (21:53)
[2019-06-22] MEDS: INSULIN LISPRO 100 UNIT/ML SUBCUT SCH ×4 (01:17→18:15)
[2019-06-22] MEDS: MEROPENEM 1,000 MG in SODIUM CHLORIDE 0.9% 100 ML IV SCH ×3 (02:55→17:23)
[2019-06-22 05:27] LABS: Basophils % 0.2 % (0.0-0.8); Eosinophils # 0.2 10*3/uL (0.0-0.87); Eosinophils % 2.4 % (0.00-10.9); Hematocrit 29.5 VOL% (35.7-47.0); Hemoglobin 9.3 GM/DL (12.0-16.0); Immature Granulocytes % 1.5 %; Immature Granulocytes Absolute 0.09 #; Lymphocytes % 31.6 % (21.3-54.2); Mean Corpuscular HGB Conc 31.5 GM/DL (32-36); Mean Corpuscular Volume 77.8 FL (87-102); Mean Platelet Volume 10.3 FL (9.6-12.0); Monocytes % 11.7 % (1.7-12.7); Neutrophils % 52.6 % (38.7-73.9); Platelet Count 263 T/CUMM (130-400); Red Blood Count 3.79 MC/CUMM (3.8-5.5); Red Cell Distribution Width 16.3 % (9.3-17.3); White Blood Count 6.2 T/CUMM (4-12)
[2019-06-22 05:45] LABS: Hypochromasia 1+; Ovalocytes Slight; Platelet Estimate Adequate
[2019-06-22 05:59] LABS: Calcium 8.3 MG/DL (8.5-10.1); Osmolality,Calculated 283.1 MOS/KG (273-304)
[2019-06-22] MEDS: GENTAMICIN INJ 120 MG in PREMIX 1 EACH IV SCH ×2 (08:14→20:55)
[2019-06-22] MEDS: ATENOLOL 25 MG TABLET PO SCH ×2 (08:16→20:42)
[2019-06-22] MEDS: LIDOCAINE 5% PATCH TRANSDERM SCH (08:16)
[2019-06-22] MEDS: FUROSEMIDE 40 MG/4 ML VIAL IV SCH (08:16)
[2019-06-22] MEDS: MECLIZINE 25 MG TABLET PO SCH ×2 (08:17→20:43)
[2019-06-22] MEDS: TAMSULOSIN 0.4 MG CAPSULE PO SCH ×2 (08:17→20:42)
[2019-06-22] MEDS: ASPIRIN EC 81 MG TABLET PO SCH (08:17)
[2019-06-22] MEDS: POTASSIUM CHLORIDE 8 MEQ CAPSULE PO SCH ×2 (08:18→20:43)
[2019-06-22] MEDS: PANTOPRAZOLE 40 MG TABLET PO SCH (08:18)
[2019-06-22] MEDS: valACYclovir 500 MG TABLET PO SCH (08:18)
[2019-06-22] MEDS: SODIUM CHLORIDE 0.9% 1,000 ML IV SCH (12:42)
[2019-06-22] MEDS: MAGNESIUM SULF RIDER 2 GM in PREMIX 1 EACH IV PRN (12:43)
[2019-06-22] MEDS ORDERED: SEVOFLURANE 1 UNIT/15 MINUTE INH ONE (13:17)
[2019-06-22] MEDS ORDERED: LIDOCAINE 2% 5 ML VIAL ONE (13:17)
[2019-06-22] MEDS ORDERED: PROPOFOL 200 MG/20 ML VIAL IV ONE (13:17)
[2019-06-22] MEDS ORDERED: fentaNYL 100 MCG/2 ML VIAL ONE (13:17)
[2019-06-22] MEDS: IRON SUCROSE 200 MG in SODIUM CHLORIDE 0.9% 100 ML IV SCH (14:50)
[2019-06-22] MEDS: MICAFUNGIN 100 MG in SODIUM CHLORIDE 0.9% 100 ML IV SCH (16:26)
[2019-06-22] MEDS: INSULIN GLARGINE 100 UNIT/ML SUBCUT SCH (20:59)
[2019-06-23] MEDS: INSULIN LISPRO 100 UNIT/ML SUBCUT SCH ×4 (01:09→18:23)
[2019-06-23] MEDS: MEROPENEM 1,000 MG in SODIUM CHLORIDE 0.9% 100 ML IV SCH ×3 (03:15→17:37)
[2019-06-23] MEDS: GENTAMICIN INJ 120 MG in PREMIX 1 EACH IV SCH ×2 (08:56→20:38)
[2019-06-23] MEDS: TAMSULOSIN 0.4 MG CAPSULE PO SCH ×2 (08:59→20:36)
[2019-06-23] MEDS: PANTOPRAZOLE 40 MG TABLET PO SCH (09:00)
[2019-06-23] MEDS: POTASSIUM CHLORIDE 8 MEQ CAPSULE PO SCH ×2 (09:00→20:36)
[2019-06-23] MEDS: MECLIZINE 25 MG TABLET PO SCH ×2 (09:00→20:37)
[2019-06-23] MEDS: ASPIRIN EC 81 MG TABLET PO SCH (09:01)
[2019-06-23] MEDS: ATENOLOL 25 MG TABLET PO SCH ×2 (09:01→20:37)
[2019-06-23] MEDS: FUROSEMIDE 40 MG/4 ML VIAL IV SCH (09:02)
[2019-06-23] MEDS: MICAFUNGIN 100 MG in SODIUM CHLORIDE 0.9% 100 ML IV SCH (14:50)
[2019-06-23] MEDS: INSULIN GLARGINE 100 UNIT/ML SUBCUT SCH (20:38)
[2019-06-24] MEDS: INSULIN LISPRO 100 UNIT/ML SUBCUT SCH ×4 (00:40→17:48)
[2019-06-24] MEDS: MEROPENEM 1,000 MG in SODIUM CHLORIDE 0.9% 100 ML IV SCH ×2 (00:41→09:22)
[2019-06-24] MEDS: FUROSEMIDE 40 MG/4 ML VIAL IV SCH (08:02)
[2019-06-24] MEDS: POTASSIUM CHLORIDE 8 MEQ CAPSULE PO SCH ×2 (08:03→21:45)
[2019-06-24] MEDS: ATENOLOL 25 MG TABLET PO SCH ×2 (08:03→21:46)
[2019-06-24] MEDS: MECLIZINE 25 MG TABLET PO SCH ×2 (08:03→21:45)
[2019-06-24] MEDS: TAMSULOSIN 0.4 MG CAPSULE PO SCH ×2 (08:04→21:46)
[2019-06-24] MEDS: ASPIRIN EC 81 MG TABLET PO SCH (08:04)
[2019-06-24] MEDS: PANTOPRAZOLE 40 MG TABLET PO SCH (08:04)
[2019-06-24] MEDS: GENTAMICIN INJ 120 MG in PREMIX 1 EACH IV SCH (08:09)
[2019-06-24] MEDS: FLUCONAZOLE INJ 400 MG in PREMIX 1 EACH IV SCH (12:04)
[2019-06-24] MEDS: MICAFUNGIN 100 MG in SODIUM CHLORIDE 0.9% 100 ML IV SCH (15:10)
[2019-06-24] MEDS: INSULIN GLARGINE 100 UNIT/ML SUBCUT SCH (21:46)
[2019-06-25] MEDS: INSULIN LISPRO 100 UNIT/ML SUBCUT SCH ×5 (00:51→23:03)
[2019-06-25] MEDS: POTASSIUM CHLORIDE 8 MEQ CAPSULE PO SCH (08:34)
[2019-06-25] MEDS: PANTOPRAZOLE 40 MG TABLET PO SCH (08:34)
[2019-06-25] MEDS: ASPIRIN EC 81 MG TABLET PO SCH (08:34)
[2019-06-25] MEDS: MECLIZINE 25 MG TABLET PO SCH ×2 (08:34→22:54)
[2019-06-25] MEDS: ATENOLOL 25 MG TABLET PO SCH ×2 (08:34→22:54)
[2019-06-25] MEDS: FUROSEMIDE 40 MG/4 ML VIAL IV SCH (08:35)
[2019-06-25] MEDS: TAMSULOSIN 0.4 MG CAPSULE PO SCH ×2 (08:35→22:53)
[2019-06-25 10:02] LABS: Bilirubin,Total 0.5 MG/DL (0.2-1.0); Calcium 8.5 MG/DL (8.5-10.1); Osmolality,Calculated 280.4 MOS/KG (273-304); Total Protein 6.5 G/DL (6.4-8.3)
[2019-06-25] MEDS: POTASSIUM CHLORIDE 20 MEQ TABLET PO SCH ×3 (11:19→18:05)
[2019-06-25] MEDS: FLUCONAZOLE INJ 400 MG in PREMIX 1 EACH IV SCH (11:20)
[2019-06-25] MEDS: MICAFUNGIN 100 MG in SODIUM CHLORIDE 0.9% 100 ML IV SCH (15:20)
[2019-06-25] MEDS: INSULIN GLARGINE 100 UNIT/ML SUBCUT SCH (22:54)
[2019-06-26 05:44] LABS: Calcium 9.6 MG/DL (8.5-10.1); Osmolality,Calculated 293.7 MOS/KG (273-304)
[2019-06-26] MEDS: INSULIN LISPRO 100 UNIT/ML SUBCUT SCH ×3 (06:59→18:27)
[2019-06-26] MEDS: MECLIZINE 25 MG TABLET PO SCH ×2 (09:05→22:15)
[2019-06-26] MEDS: ASPIRIN EC 81 MG TABLET PO SCH (09:05)
[2019-06-26] MEDS: PANTOPRAZOLE 40 MG TABLET PO SCH (09:05)
[2019-06-26] MEDS: ATENOLOL 25 MG TABLET PO SCH ×2 (09:05→22:16)
[2019-06-26] MEDS: TAMSULOSIN 0.4 MG CAPSULE PO SCH ×2 (09:05→22:15)
[2019-06-26] MEDS: FLUCONAZOLE INJ 400 MG in PREMIX 1 EACH IV SCH (10:40)
[2019-06-26] MEDS: MICAFUNGIN 100 MG in SODIUM CHLORIDE 0.9% 100 ML IV SCH (16:21)
[2019-06-26] MEDS: INSULIN GLARGINE 100 UNIT/ML SUBCUT SCH (22:16)
[2019-06-27] MEDS: INSULIN LISPRO 100 UNIT/ML SUBCUT SCH ×4 (00:34→17:18)
[2019-06-27] MEDS: MECLIZINE 25 MG TABLET PO SCH ×2 (08:13→21:36)
[2019-06-27] MEDS: TAMSULOSIN 0.4 MG CAPSULE PO SCH ×2 (08:13→21:37)
[2019-06-27] MEDS: PANTOPRAZOLE 40 MG TABLET PO SCH (08:13)
[2019-06-27] MEDS: ASPIRIN EC 81 MG TABLET PO SCH (08:13)
[2019-06-27] MEDS: ATENOLOL 25 MG TABLET PO SCH ×2 (08:14→21:36)
[2019-06-27] MEDS: FLUCONAZOLE INJ 400 MG in PREMIX 1 EACH IV SCH (10:37)
[2019-06-27 12:11] LABS: Basophils % 0.4 % (0.0-0.8); Eosinophils # 0.2 10*3/uL (0.0-0.87); Hematocrit 33.9 VOL% (35.7-47.0); Hemoglobin 10.2 GM/DL (12.0-16.0); Immature Granulocytes % 0.7 %; Immature Granulocytes Absolute 0.05 #; Lymphocytes % 26.1 % (21.3-54.2); Mean Corpuscular HGB Conc 30.1 GM/DL (32-36); Mean Corpuscular Volume 81.3 FL (87-102); Mean Platelet Volume 10.2 FL (9.6-12.0); Neutrophils % 63.8 % (38.7-73.9); Platelet Count 248 T/CUMM (130-400); Red Blood Count 4.17 MC/CUMM (3.8-5.5); Red Cell Distribution Width 17.6 % (9.3-17.3); White Blood Count 7.7 T/CUMM (4-12)
[2019-06-27] MEDS: MICAFUNGIN 100 MG in SODIUM CHLORIDE 0.9% 100 ML IV SCH (14:46)
[2019-06-27] MEDS: INSULIN GLARGINE 100 UNIT/ML SUBCUT SCH (21:37)
[2019-06-28] MEDS: INSULIN LISPRO 100 UNIT/ML SUBCUT SCH ×4 (01:28→18:31)
[2019-06-28 05:26] LABS: Basophils % 0.3 % (0.0-0.8); Eosinophils # 0.2 10*3/uL (0.0-0.87); Eosinophils % 2.3 % (0.00-10.9); Hematocrit 32.7 VOL% (35.7-47.0); Hemoglobin 9.9 GM/DL (12.0-16.0); Immature Granulocytes % 0.7 %; Immature Granulocytes Absolute 0.05 #; Lymphocytes # 2.3 10*3/uL (1.4-4.0); Lymphocytes % 33.1 % (21.3-54.2); Mean Corpuscular HGB Conc 30.3 GM/DL (32-36); Mean Corpuscular Volume 80.9 FL (87-102); Mean Platelet Volume 9.9 FL (9.6-12.0); Neutrophils % 56.6 % (38.7-73.9); Platelet Count 234 T/CUMM (130-400); Red Blood Count 4.04 MC/CUMM (3.8-5.5); Red Cell Distribution Width 17.6 % (9.3-17.3); White Blood Count 6.8 T/CUMM (4-12)
[2019-06-28 05:55] LABS: Albumin 2.3 G/DL (3.4-5.0); Bilirubin,Total 0.5 MG/DL (0.2-1.0); Calcium 9.4 MG/DL (8.5-10.1); Osmolality,Calculated 292.7 MOS/KG (273-304); Total Protein 6.9 G/DL (6.4-8.3)
[2019-06-28] MEDS ORDERED: DEXTROSE 50% 25 GM/50 ML VIAL IV PRN (09:42)
[2019-06-28] MEDS: ASPIRIN EC 81 MG TABLET PO SCH (10:19)
[2019-06-28] MEDS: ATENOLOL 25 MG TABLET PO SCH ×2 (10:20→21:54)
[2019-06-28] MEDS: MECLIZINE 25 MG TABLET PO SCH ×2 (10:20→21:54)
[2019-06-28] MEDS: TAMSULOSIN 0.4 MG CAPSULE PO SCH ×2 (10:22→21:54)
[2019-06-28] MEDS: PANTOPRAZOLE 40 MG TABLET PO SCH (10:22)
[2019-06-28] MEDS: FLUCONAZOLE INJ 400 MG in PREMIX 1 EACH IV SCH (10:29)
[2019-06-28] MEDS: ACETAMINOPHEN 325 MG TABLET PO PRN (11:53)
[2019-06-28] MEDS: INSULIN GLARGINE 100 UNIT/ML SUBCUT SCH (21:54)
[2019-06-29] MEDS: INSULIN LISPRO 100 UNIT/ML SUBCUT SCH ×4 (00:54→18:02)
[2019-06-29 06:02] LABS: Osmolality,Calculated 282.5 MOS/KG (273-304)
[2019-06-29] MEDS: PANTOPRAZOLE 40 MG TABLET PO SCH (10:28)
[2019-06-29] MEDS: TAMSULOSIN 0.4 MG CAPSULE PO SCH ×2 (10:28→21:32)
[2019-06-29] MEDS: ATENOLOL 25 MG TABLET PO SCH ×2 (10:29→21:32)
[2019-06-29] MEDS: ASPIRIN EC 81 MG TABLET PO SCH (10:29)
[2019-06-29] MEDS: MECLIZINE 25 MG TABLET PO SCH ×2 (10:29→21:33)
[2019-06-29] MEDS: FLUCONAZOLE INJ 400 MG in PREMIX 1 EACH IV SCH (10:31)
[2019-06-29] MEDS: INSULIN GLARGINE 100 UNIT/ML SUBCUT SCH (21:32)
[2019-06-30] MEDS: INSULIN LISPRO 100 UNIT/ML SUBCUT SCH ×3 (01:26→12:17)
[2019-06-30] MEDS: ASPIRIN EC 81 MG TABLET PO SCH (09:36)
[2019-06-30] MEDS: TAMSULOSIN 0.4 MG CAPSULE PO SCH (09:36)
[2019-06-30] MEDS: PANTOPRAZOLE 40 MG TABLET PO SCH (09:37)
[2019-06-30] MEDS: MECLIZINE 25 MG TABLET PO SCH (09:37)
[2019-06-30] MEDS: ATENOLOL 25 MG TABLET PO SCH (09:37)
[2019-06-30] MEDS: ACETAMINOPHEN 325 MG TABLET PO PRN (11:31)
[2019-06-30] MEDS: FLUCONAZOLE INJ 400 MG in PREMIX 1 EACH IV SCH (11:37)
[2019-06-30 11:43] VITALS: BP 136/78
== END 2019-06-30 14:15 | disposition swing bed (61) | DRG 853 ==
LOC: EDUNIT# → EDBD → N.ED 16:56 → SUATTDRO 21:07 → N.EDINP 21:07 → N.5E 21:32 → N.ICU 06-18 15:06 → N.5E 06-21 19:17
PROVIDERS: ADMIT Internal Medicine; ATTEND Internal Medicine

== ENCOUNTER 2019-08-31 01:34 | Inpatient (IN) ==
[2019-08-31] MEDS ORDERED: SODIUM CHLORIDE 0.9% 1,000 ML IV STA (02:40)
[2019-08-31] MEDS ORDERED: ONDANSETRON 4 MG/2 ML VIAL IV ONE (02:41)
[2019-08-31] MEDS ORDERED: MORPHINE 4 MG/1 ML VIAL IV STA (02:41)
[2019-08-31 03:41] LABS: Basophils % 0.2 % (0.0-0.8); Eosinophils # 0.1 10*3/uL (0.0-0.87); Eosinophils % 0.9 % (0.00-10.9); Hematocrit 21.7 VOL% (35.7-47.0); Hemoglobin 6.7 GM/DL (12.0-16.0); Immature Granulocytes % 1.1 %; Immature Granulocytes Absolute 0.11 #; Lymphocytes # 2.7 10*3/uL (1.4-4.0); Lymphocytes % 26.9 % (21.3-54.2); Mean Corpuscular HGB Conc 30.9 GM/DL (32-36); Mean Corpuscular Volume 82.8 FL (87-102); Mean Platelet Volume 9.3 FL (9.6-12.0); Monocytes % 7.1 % (1.7-12.7); Neutrophils % 63.8 % (38.7-73.9); Platelet Count 232 T/CUMM (130-400); Red Blood Count 2.62 MC/CUMM (3.8-5.5); Red Cell Distribution Width 18.8 % (9.3-17.3); White Blood Count 9.9 T/CUMM (4-12)
[2019-08-31] MEDS ORDERED: diphenhydrAMINE 50 MG/1 ML VIAL IV STA (03:49)
[2019-08-31] MEDS ORDERED: methylPREDNISolone SOD SUC 125 MG/2 ML VIAL IV STA ×2 (03:51)
[2019-08-31 04:31] LABS: Alanine Aminotransferase 12 U/L (13-56); Alkaline Phosphatase 55 U/L (45-117); Aspartate Amino Transferase 10 U/L (0-37); Bilirubin,Total < 0.39 MG/DL (0.2-1.0); Blood Urea Nitrogen 14 MG/DL (7-18); Calcium 9.1 MG/DL (8.5-10.1); Estimated Glom Filtration Rate 44 ML/MIN; Glucose 158 MG/DL (74-106); Osmolality,Calculated 282.4 MOS/KG (273-304); Total Protein 7.6 G/DL (6.4-8.3)
[2019-08-31 05:55] LABS: Apearance,Urine CLOUDY (Clear); Bacteria,Urine Occasional /HPF (Few); Bilirubin,Urine Negative (Negative); Blood, Urine Small mg/dL (Negative); Glucose,Urine (UA) Negative (Negative); Ketones,Urine Negative (Negative); Mucus,Urine Occasional /LPF (Occasional); Nitrite,Urine Negative (Negative); Protein,Urine 30 MG/DL; RBC,Urine 15 /HPF (0-4); Squamous Epithelial Cell,Urine Occasional /HPF (0-10); Urine Color Yellow (Yellow); Urine Urobilinogen < 2.0 EU/DL (0.2-1.0); WBC,Urine 299 /HPF (0-6)
[2019-08-31] MEDS ORDERED: SODIUM CHLORIDE 0.9% 1,000 ML IV PRN (10:02)
[2019-08-31] MEDS ORDERED: FUROSEMIDE 40 MG TABLET PO PRN (11:48)
[2019-08-31] MEDS ORDERED: GLUCAGON 1 MG VIAL IM PRN (11:49)
[2019-08-31] MEDS ORDERED: DEXTROSE 50% 25 GM/50 ML VIAL IV PRN (11:49)
[2019-08-31] MEDS ORDERED: ONDANSETRON 4 MG/2 ML VIAL IV PRN ×2 (13:47)
[2019-08-31] MEDS: INSULIN REGULAR 100 UNIT/ML SUBCUT SCH ×2 (16:27→23:21)
[2019-08-31 18:58] LABS: Hematocrit 38.2 VOL% (35.7-47.0)
[2019-08-31 19:03] LABS: Hemoglobin 11.9 GM/DL (12.0-16.0)
[2019-08-31] MEDS: MECLIZINE 12.5 MG TABLET PO SCH (20:49)
[2019-08-31] MEDS: TAMSULOSIN 0.4 MG CAPSULE PO SCH (20:50)
[2019-08-31] MEDS: MAGNESIUM OXIDE 400 MG TABLET PO SCH (20:50)
[2019-08-31] MEDS: POTASSIUM CHLORIDE 8 MEQ CAPSULE PO SCH (20:50)
[2019-08-31] MEDS: INSULIN GLARGINE 100 UNIT/ML SUBCUT SCH (20:50)
[2019-08-31] MEDS: ATENOLOL 25 MG TABLET PO SCH (20:50)
[2019-08-31] MEDS ORDERED: DEXAMETHASONE 0.1% OPH SOLN 5 ML BOTTLE RIGHT EAR SCH (21:00)
[2019-08-31] MEDS ORDERED: INSULIN REGULAR 100 UNIT/ML SUBCUT SCH (21:00)
[2019-08-31] MEDS: LEVOFLOXACIN INJ 500 MG in PREMIX 1 EACH IV SCH (21:10)
[2019-09-01 05:36] LABS: Basophils % 0.1 % (0.0-0.8); Eosinophils # 0.1 10*3/uL (0.0-0.87); Eosinophils % 0.7 % (0.00-10.9); Hematocrit 38.1 VOL% (35.7-47.0); Hemoglobin 12.1 GM/DL (12.0-16.0); Immature Granulocytes % 0.6 %; Immature Granulocytes Absolute 0.04 #; Lymphocytes # 1.7 10*3/uL (1.4-4.0); Lymphocytes % 24.6 % (21.3-54.2); Mean Corpuscular HGB Conc 31.8 GM/DL (32-36); Mean Corpuscular Volume 82.3 FL (87-102); Mean Platelet Volume 9.5 FL (9.6-12.0); Monocytes % 7.7 % (1.7-12.7); Neutrophils % 66.3 % (38.7-73.9); Platelet Count 189 T/CUMM (130-400); Red Blood Count 4.63 MC/CUMM (3.8-5.5); White Blood Count 6.9 T/CUMM (4-12)
[2019-09-01 06:04] LABS: Bilirubin,Total 1.1 MG/DL (0.2-1.0); Calcium 9.4 MG/DL (8.5-10.1); Osmolality,Calculated 277.3 MOS/KG (273-304); Total Protein 7.6 G/DL (6.4-8.3)
[2019-09-01 06:09] LABS: Folate 14.7 NG/ML (5.4-24.0); Vitamin B12 377 PG/ML (211-911)
[2019-09-01] MEDS: INSULIN REGULAR 100 UNIT/ML SUBCUT SCH ×4 (07:11→21:41)
[2019-09-01 07:32] LABS: Sedimentation Rate-Westergren 87 MM/HR (0-30)
[2019-09-01] MEDS ORDERED: DEXTROSE 10% 250 ML IV PRN (07:56)
[2019-09-01] MEDS ORDERED: LACTATED RINGERS 1,000 ML IV SCH (08:00)
[2019-09-01 08:48] LABS: Hemoglobin A1 (Alkaline) 97.4 % (96.5-98.5); Hemoglobin A2 (Alkaline) 2.6 % (1.5-3.5)
[2019-09-01] MEDS ORDERED: SODIUM PHOSPHATE ENEMA 133 ML BOTTLE RECTAL ONE (10:00)
[2019-09-01] MEDS: INSULIN GLARGINE 100 UNIT/ML SUBCUT SCH ×3 (10:44→21:57)
[2019-09-01] MEDS: CETIRIZINE 10 MG TABLET PO SCH (11:15)
[2019-09-01] MEDS: MAGNESIUM OXIDE 400 MG TABLET PO SCH ×2 (11:15→21:41)
[2019-09-01] MEDS: POTASSIUM CHLORIDE 8 MEQ CAPSULE PO SCH ×2 (11:16→21:40)
[2019-09-01] MEDS: ATENOLOL 25 MG TABLET PO SCH ×2 (11:16→21:40)
[2019-09-01] MEDS: MECLIZINE 12.5 MG TABLET PO SCH ×2 (11:16→21:51)
[2019-09-01] MEDS: PANTOPRAZOLE 40 MG TABLET PO SCH (11:16)
[2019-09-01] MEDS: TAMSULOSIN 0.4 MG CAPSULE PO SCH ×2 (11:16→21:41)
[2019-09-01] MEDS ORDERED: BISACODYL 5 MG TABLET PO ONE (12:00)
[2019-09-01] MEDS ORDERED: LIDOCAINE 2% 5 ML VIAL ONE (12:00)
[2019-09-01] MEDS ORDERED: PROPOFOL 200 MG/20 ML VIAL IV ONE (12:00)
[2019-09-01] MEDS ORDERED: POLYETHYLENE GLYCOL POWDER 255 GM BOTTLE PO ONE (13:00)
[2019-09-01] MEDS ORDERED: MAGNESIUM CITRATE 300 ML BOTTLE PO ONE (21:00)
[2019-09-01] MEDS: LEVOFLOXACIN INJ 500 MG in PREMIX 1 EACH IV SCH (21:44)
[2019-09-02 05:56] LABS: Basophils % 0.1 % (0.0-0.8); Eosinophils # 0.1 10*3/uL (0.0-0.87); Eosinophils % 0.8 % (0.00-10.9); Hematocrit 37.4 VOL% (35.7-47.0); Hemoglobin 11.8 GM/DL (12.0-16.0); Immature Granulocytes % 0.5 %; Immature Granulocytes Absolute 0.04 #; Mean Corpuscular HGB Conc 31.6 GM/DL (32-36); Mean Corpuscular Volume 81.8 FL (87-102); Mean Platelet Volume 9.4 FL (9.6-12.0); Monocytes % 6.4 % (1.7-12.7); Neutrophils % 66.2 % (38.7-73.9); Platelet Count 180 T/CUMM (130-400); Red Blood Count 4.57 MC/CUMM (3.8-5.5); Red Cell Distribution Width 17.2 % (9.3-17.3); White Blood Count 7.6 T/CUMM (4-12)
[2019-09-02 06:07] LABS: PT Patient Result 11.1 SECS (9.6-12.2)
[2019-09-02 06:22] LABS: Albumin 2.8 G/DL (3.4-5.0); Calcium 8.8 MG/DL (8.5-10.1); Osmolality,Calculated 279.4 MOS/KG (273-304); Total Protein 7.4 G/DL (6.4-8.3)
[2019-09-02] MEDS ORDERED: LACTATED RINGERS 1,000 ML IV SCH (08:00)
[2019-09-02] MEDS ORDERED: LIDOCAINE 2% 5 ML VIAL ONE (12:00)
[2019-09-02] MEDS ORDERED: PROPOFOL 200 MG/20 ML VIAL IV ONE (12:00)
[2019-09-02] MEDS: INSULIN REGULAR 100 UNIT/ML SUBCUT SCH ×3 (12:31→21:51)
[2019-09-02] MEDS: POTASSIUM CHLORIDE 8 MEQ CAPSULE PO SCH ×2 (12:32→21:50)
[2019-09-02] MEDS: MAGNESIUM OXIDE 400 MG TABLET PO SCH ×2 (12:32→21:50)
[2019-09-02] MEDS: MECLIZINE 12.5 MG TABLET PO SCH ×2 (12:34→21:50)
[2019-09-02] MEDS: CETIRIZINE 10 MG TABLET PO SCH (12:34)
[2019-09-02] MEDS: TAMSULOSIN 0.4 MG CAPSULE PO SCH ×2 (12:34→21:49)
[2019-09-02] MEDS: ATENOLOL 25 MG TABLET PO SCH ×2 (12:35→21:50)
[2019-09-02] MEDS: PANTOPRAZOLE 40 MG TABLET PO SCH (12:36)
[2019-09-02] MEDS: INSULIN GLARGINE 100 UNIT/ML SUBCUT SCH ×2 (12:50→21:51)
[2019-09-02] MEDS: LEVOFLOXACIN INJ 500 MG in PREMIX 1 EACH IV SCH (21:52)
[2019-09-03 05:36] LABS: Basophils % 0.3 % (0.0-0.8); Eosinophils # 0.1 10*3/uL (0.0-0.87); Eosinophils % 1.3 % (0.00-10.9); Hematocrit 36.3 VOL% (35.7-47.0); Hemoglobin 11.4 GM/DL (12.0-16.0); Immature Granulocytes % 0.6 %; Immature Granulocytes Absolute 0.04 #; Lymphocytes # 1.9 10*3/uL (1.4-4.0); Lymphocytes % 27.9 % (21.3-54.2); Mean Corpuscular HGB Conc 31.4 GM/DL (32-36); Mean Corpuscular Volume 82.5 FL (87-102); Mean Platelet Volume 9.7 FL (9.6-12.0); Monocytes % 7.6 % (1.7-12.7); Neutrophils % 62.3 % (38.7-73.9); Platelet Count 174 T/CUMM (130-400); Red Cell Distribution Width 16.9 % (9.3-17.3); White Blood Count 6.9 T/CUMM (4-12)
[2019-09-03 05:53] LABS: Albumin 2.6 G/DL (3.4-5.0); Bilirubin,Total 0.9 MG/DL (0.2-1.0); Calcium 8.9 MG/DL (8.5-10.1); Osmolality,Calculated 286.6 MOS/KG (273-304); Total Protein 6.8 G/DL (6.4-8.3)
[2019-09-03] MEDS: ATENOLOL 25 MG TABLET PO SCH (09:33)
[2019-09-03] MEDS: INSULIN REGULAR 100 UNIT/ML SUBCUT SCH ×3 (09:49→16:23)
[2019-09-03] MEDS: CETIRIZINE 10 MG TABLET PO SCH (12:24)
[2019-09-03] MEDS: TAMSULOSIN 0.4 MG CAPSULE PO SCH (12:24)
[2019-09-03] MEDS: POTASSIUM CHLORIDE 8 MEQ CAPSULE PO SCH (12:24)
[2019-09-03] MEDS: MAGNESIUM OXIDE 400 MG TABLET PO SCH (12:25)
[2019-09-03] MEDS: MECLIZINE 12.5 MG TABLET PO SCH (12:25)
[2019-09-03] MEDS: PANTOPRAZOLE 40 MG TABLET PO SCH (12:25)
[2019-09-03] MEDS: INSULIN GLARGINE 100 UNIT/ML SUBCUT SCH (12:29)
[2019-09-03 16:15] VITALS: BP 138/58
== END 2019-09-03 16:35 | disposition home health service (06) | DRG 689 ==
LOC: EDBD → SUATTDRO → EDUNIT# → N.ED 01:34 → N.EDINP 01:34 → N.2E 10:33
PROVIDERS: ADMIT Internal Medicine; ATTEND Internal Medicine

== ENCOUNTER 2019-11-07 03:53 | Inpatient (IN) ==
[2019-11-07] MEDS ORDERED: ONDANSETRON 4 MG/2 ML VIAL IV STA (04:17)
[2019-11-07] MEDS ORDERED: SODIUM CHLORIDE 0.9% 1,000 ML IV STA (04:19)
[2019-11-07] MEDS ORDERED: MORPHINE 4 MG/1 ML VIAL IV STA (04:20)
[2019-11-07 04:42] LABS: Basophils % 0.2 % (0.0-0.8); Eosinophils % 0.1 % (0.00-10.9); Hematocrit 38.6 VOL% (35.7-47.0); Hemoglobin 12.3 GM/DL (12.0-16.0); Immature Granulocytes % 0.5 %; Immature Granulocytes Absolute 0.06 #; Lymphocytes # 0.8 10*3/uL (1.4-4.0); Lymphocytes % 6.7 % (21.3-54.2); Mean Corpuscular HGB Conc 31.9 GM/DL (32-36); Mean Corpuscular Volume 82.3 FL (87-102); Mean Platelet Volume 10.4 FL (9.6-12.0); Monocytes % 6.4 % (1.7-12.7); Neutrophils % 86.1 % (38.7-73.9); Platelet Count 155 T/CUMM (130-400); Red Blood Count 4.69 MC/CUMM (3.8-5.5); Red Cell Distribution Width 14.5 % (9.3-17.3); White Blood Count 12.1 T/CUMM (4-12)
[2019-11-07 05:16] LABS: Albumin 3.6 G/DL (3.4-5.0); Bilirubin,Total 0.8 MG/DL (0.2-1.0); Calcium 9.1 MG/DL (8.5-10.1); Osmolality,Calculated 283.8 MOS/KG (273-304); Total Protein 7.8 G/DL (6.4-8.3)
[2019-11-07 07:28] LABS: Apearance,Urine CLOUDY (Clear); Bacteria,Urine Many /HPF (Few); Bilirubin,Urine Negative (Negative); Blood, Urine Moderate mg/dL (Negative); Glucose,Urine (UA) >=500 mg/dL (Negative); Ketones,Urine 5 mg/dL (Negative); Nitrite,Urine Negative (Negative); Protein,Urine 100 MG/DL; RBC,Urine 171 /HPF (0-4); Squamous Epithelial Cell,Urine Many /HPF (0-10); Urine Color Yellow (Yellow); Urine Specific Gravity 1.017 (1.001-1.035); Urine Urobilinogen < 2.0 EU/DL (0.2-1.0); WBC,Urine 3544 /HPF (0-6)
[2019-11-07] MEDS ORDERED: MEROPENEM 1,000 MG in SODIUM CHLORIDE 0.9% 100 ML IV ONE (07:49)
[2019-11-07] MEDS ORDERED: ONDANSETRON 4 MG/2 ML VIAL IV PRN (09:12)
[2019-11-07] MEDS ORDERED: ZALEPLON 5 MG CAPSULE PO PRN (09:12)
[2019-11-07] MEDS ORDERED: hydrALAZINE 20 MG/1 ML VIAL IV PRN (09:32)
[2019-11-07] MEDS ORDERED: ALBUTEROL 2.5 MG/3 ML NEB RESP TX PRN (11:08)
[2019-11-07] MEDS: atenoloL 25 MG TABLET PO SCH ×2 (12:01→21:53)
[2019-11-07] MEDS: SODIUM CHLORIDE 0.9% 1,000 ML IV SCH (12:01)
[2019-11-07] MEDS ORDERED: LACTULOSE 20 GM/30 ML UDCUP PO PRN (14:12)
[2019-11-07] MEDS ORDERED: LEVOFLOXACIN INJ 500 MG in PREMIX 1 EACH IV ONE (15:00)
[2019-11-07] MEDS: ACETAMINOPHEN 325 MG TABLET PO PRN ×2 (17:46→22:32)
[2019-11-07] MEDS: POTASSIUM CHLORIDE 8 MEQ CAPSULE PO SCH (21:52)
[2019-11-07] MEDS: MAGNESIUM OXIDE 400 MG TABLET PO SCH (21:52)
[2019-11-07] MEDS: INSULIN GLARGINE 100 UNIT/ML SUBCUT SCH (21:55)
[2019-11-07] MEDS: diphenhydrAMINE CAP 25 MG CAPSULE PO PRN (22:33)
[2019-11-07] MEDS: MECLIZINE 12.5 MG TABLET PO SCH (22:46)
[2019-11-08 07:19] LABS: Basophils % 0.2 % (0.0-0.8); Eosinophils # 0.2 10*3/uL (0.0-0.87); Eosinophils % 1.7 % (0.00-10.9); Hematocrit 30.3 VOL% (35.7-47.0); Immature Granulocytes % 0.7 %; Immature Granulocytes Absolute 0.07 #; Lymphocytes # 1.2 10*3/uL (1.4-4.0); Lymphocytes % 12.4 % (21.3-54.2); Mean Corpuscular HGB Conc 31.7 GM/DL (32-36); Mean Corpuscular Volume 83.5 FL (87-102); Mean Platelet Volume 11.2 FL (9.6-12.0); Platelet Count 126 T/CUMM (130-400); Red Cell Distribution Width 14.5 % (9.3-17.3); White Blood Count 9.5 T/CUMM (4-12)
[2019-11-08 07:20] LABS: Hemoglobin 9.6 GM/DL (12.0-16.0); Red Blood Count 3.63 MC/CUMM (3.8-5.5)
[2019-11-08 07:39] LABS: Albumin 2.5 G/DL (3.4-5.0); Bilirubin,Total 0.9 MG/DL (0.2-1.0); Calcium 8.4 MG/DL (8.5-10.1); Osmolality,Calculated 276.7 MOS/KG (273-304); Total Protein 6.6 G/DL (6.4-8.3)
[2019-11-08 08:55] LABS: Hypochromasia 1+
[2019-11-08 08:56] LABS: Platelet Estimate Normal
[2019-11-08] MEDS: POTASSIUM CHLORIDE 20 MEQ TABLET PO PRN ×4 (09:45→17:53)
[2019-11-08] MEDS: atenoloL 25 MG TABLET PO SCH ×2 (09:48→20:46)
[2019-11-08] MEDS: ASCORBIC ACID 500 MG TABLET PO SCH (09:49)
[2019-11-08] MEDS: CETIRIZINE 10 MG TABLET PO SCH (09:50)
[2019-11-08] MEDS: ASPIRIN EC 81 MG TABLET PO SCH (09:50)
[2019-11-08] MEDS: MECLIZINE 12.5 MG TABLET PO SCH ×2 (09:50→20:46)
[2019-11-08] MEDS: PANTOPRAZOLE 40 MG TABLET PO SCH (09:50)
[2019-11-08] MEDS: MAGNESIUM OXIDE 400 MG TABLET PO SCH ×2 (09:50→20:46)
[2019-11-08] MEDS: INSULIN GLARGINE 100 UNIT/ML SUBCUT SCH ×2 (09:51→21:35)
[2019-11-08] MEDS ORDERED: DEXTROSE 50% 25 GM/50 ML VIAL IV PRN (10:31)
[2019-11-08] MEDS ORDERED: GLUCAGON 1 MG VIAL IM PRN (10:31)
[2019-11-08] MEDS ORDERED: DEXTROSE 10% 250 ML BAG IV PRN (10:39)
[2019-11-08] MEDS: INSULIN LISPRO 100 UNIT/ML SUBCUT SCH ×3 (12:30→21:48)
[2019-11-08] MEDS: LEVOFLOXACIN INJ 250 MG in PREMIX 1 EACH IV SCH (16:13)
[2019-11-08 20:00] LABS: Apearance,Urine Slightly Hazy (Clear); Bacteria,Urine Occasional /HPF (Few); Bilirubin,Urine Negative (Negative); Blood, Urine Small mg/dL (Negative); Glucose,Urine (UA) 50 mg/dL (Negative); Hyaline Casts,Urine 1 /LPF (0-3); Ketones,Urine Negative (Negative); Mucus,Urine Occasional /LPF (Occasional); Nitrite,Urine Negative (Negative); Protein,Urine Negative; RBC,Urine 8 /HPF (0-4); Urine Color Colorless (Yellow); Urine Specific Gravity 1.005 (1.001-1.035); Urine Urobilinogen < 2.0 EU/DL (0.2-1.0); WBC,Urine 110 /HPF (0-6)
[2019-11-08] MEDS: SIMVASTATIN 10 MG TABLET PO SCH (20:47)
[2019-11-08] MEDS: ACETAMINOPHEN 325 MG TABLET PO PRN (21:52)
[2019-11-08] MEDS: SODIUM CHLORIDE 0.9% 1,000 ML IV SCH ×2 (23:26→23:27)
[2019-11-09] MEDS: POTASSIUM CHLORIDE 20 MEQ TABLET PO PRN (00:46)
[2019-11-09] MEDS: SODIUM CHLORIDE 0.9% 1,000 ML IV SCH ×2 (05:52→12:58)
[2019-11-09] MEDS: ASCORBIC ACID 500 MG TABLET PO SCH (10:36)
[2019-11-09] MEDS: MAGNESIUM OXIDE 400 MG TABLET PO SCH ×2 (10:36→20:56)
[2019-11-09] MEDS: ASPIRIN EC 81 MG TABLET PO SCH (10:36)
[2019-11-09] MEDS: PANTOPRAZOLE 40 MG TABLET PO SCH (10:36)
[2019-11-09] MEDS: CETIRIZINE 10 MG TABLET PO SCH (10:36)
[2019-11-09] MEDS: MECLIZINE 12.5 MG TABLET PO SCH ×2 (10:37→20:56)
[2019-11-09] MEDS: INSULIN LISPRO 100 UNIT/ML SUBCUT SCH ×4 (10:37→21:00)
[2019-11-09] MEDS: atenoloL 25 MG TABLET PO SCH ×2 (10:38→20:55)
[2019-11-09] MEDS: INSULIN GLARGINE 100 UNIT/ML SUBCUT SCH ×3 (10:42→20:59)
[2019-11-09] MEDS: LEVOFLOXACIN INJ 250 MG in PREMIX 1 EACH IV SCH (15:47)
[2019-11-09] MEDS: LINEZOLID 600 MG TABLET PO SCH ×2 (15:49→20:55)
[2019-11-09] MEDS: hydroCHLOROthiazide 12.5 MG CAPSULE PO SCH (15:57)
[2019-11-09] MEDS: LACTOBACILLUS RHAMNOSUS GG CAPSULE PO SCH (20:55)
[2019-11-09] MEDS: ACETAMINOPHEN 325 MG TABLET PO PRN (20:56)
[2019-11-09] MEDS: SIMVASTATIN 10 MG TABLET PO SCH (20:56)
[2019-11-10] MEDS: INSULIN LISPRO 100 UNIT/ML SUBCUT SCH ×4 (08:23→21:07)
[2019-11-10] MEDS: INSULIN GLARGINE 100 UNIT/ML SUBCUT SCH ×2 (09:29→21:06)
[2019-11-10] MEDS: diphenhydrAMINE CAP 25 MG CAPSULE PO PRN ×3 (09:30→21:10)
[2019-11-10] MEDS: LINEZOLID 600 MG TABLET PO SCH ×2 (09:30→21:09)
[2019-11-10] MEDS: POTASSIUM CHLORIDE 8 MEQ CAPSULE PO SCH ×2 (09:30→21:09)
[2019-11-10] MEDS: ASPIRIN EC 81 MG TABLET PO SCH (09:30)
[2019-11-10] MEDS: LACTOBACILLUS RHAMNOSUS GG CAPSULE PO SCH ×2 (09:30→21:07)
[2019-11-10] MEDS: hydroCHLOROthiazide 12.5 MG CAPSULE PO SCH (09:30)
[2019-11-10] MEDS: ASCORBIC ACID 500 MG TABLET PO SCH (09:31)
[2019-11-10] MEDS: atenoloL 25 MG TABLET PO SCH ×2 (09:31→21:07)
[2019-11-10] MEDS: MECLIZINE 12.5 MG TABLET PO SCH ×2 (09:31→21:07)
[2019-11-10] MEDS: PANTOPRAZOLE 40 MG TABLET PO SCH (09:31)
[2019-11-10] MEDS: MAGNESIUM OXIDE 400 MG TABLET PO SCH ×2 (09:31→21:09)
[2019-11-10] MEDS: CETIRIZINE 10 MG TABLET PO SCH (09:31)
[2019-11-10] MEDS: ACETAMINOPHEN 325 MG TABLET PO PRN (09:54)
[2019-11-10] MEDS: LEVOFLOXACIN INJ 250 MG in PREMIX 1 EACH IV SCH (14:15)
[2019-11-10] MEDS: SIMVASTATIN 10 MG TABLET PO SCH (21:07)
[2019-11-11] MEDS: diphenhydrAMINE CAP 25 MG CAPSULE PO PRN (06:10)
[2019-11-11] MEDS: INSULIN LISPRO 100 UNIT/ML SUBCUT SCH ×2 (09:45→12:18)
[2019-11-11] MEDS: CETIRIZINE 10 MG TABLET PO SCH (09:50)
[2019-11-11] MEDS: POTASSIUM CHLORIDE 8 MEQ CAPSULE PO SCH (09:50)
[2019-11-11] MEDS: PANTOPRAZOLE 40 MG TABLET PO SCH (09:50)
[2019-11-11] MEDS: hydroCHLOROthiazide 12.5 MG CAPSULE PO SCH (09:50)
[2019-11-11] MEDS: MAGNESIUM OXIDE 400 MG TABLET PO SCH (09:50)
[2019-11-11] MEDS: LINEZOLID 600 MG TABLET PO SCH (09:50)
[2019-11-11] MEDS: LACTOBACILLUS RHAMNOSUS GG CAPSULE PO SCH (09:50)
[2019-11-11] MEDS: ASCORBIC ACID 500 MG TABLET PO SCH (09:51)
[2019-11-11] MEDS: ASPIRIN EC 81 MG TABLET PO SCH (09:51)
[2019-11-11] MEDS: atenoloL 25 MG TABLET PO SCH (09:52)
[2019-11-11] MEDS: INSULIN GLARGINE 100 UNIT/ML SUBCUT SCH (09:52)
[2019-11-11] MEDS: MECLIZINE 12.5 MG TABLET PO SCH (09:54)
[2019-11-11 11:51] VITALS: BP 152/58
[2019-11-15 09:11] LABS: Stone Source Kidney
== END 2019-11-11 15:00 | disposition home health service (06) | DRG 690 ==
LOC: EDUNIT# → EDBD → N.ED 03:53 → N.EDINP 09:12 → SUATTDRO 09:12 → N.5E 11:14
PROVIDERS: ADMIT Family Medicine; ATTEND Internal Medicine

== ENCOUNTER 2022-04-10 10:37 | Observation (INO) ==
[2022-04-10] MEDS ORDERED: SODIUM CHLORIDE 0.9% 1,000 ML IV STA (11:15)
[2022-04-10] MEDS ORDERED: ACETAMINOPHEN 325 MG TABLET PO ONE (11:17)
[2022-04-10 11:35] LABS: Alanine Aminotransferase 29 U/L (13-56); Albumin 3.3 G/DL (3.4-5.0); Alkaline Phosphatase 74 U/L (45-117); Aspartate Amino Transferase 36 U/L (0-37); Bilirubin,Total < 0.39 MG/DL (0.20-1.00); Blood Urea Nitrogen 15 MG/DL (7-18); Carbon Dioxide 24 MMOL/L (21-32); Chloride 108 MMOL/L (98-107); Glucose 201 MG/DL (74-106); Osmolality,Calculated 281.7 MOS/KG (273-304); Potassium 4.5 MMOL/L (3.5-5.1); Sodium 138 MMOL/L (136-145); Total Protein 7.1 G/DL (6.4-8.2)
[2022-04-10 11:46] LABS: Basophils % 0.1 % (0.0-0.8); Eosinophils # 0.1 10*3/uL (0.0-0.87); Eosinophils % 1.2 % (0.00-10.9); Hematocrit 36.4 VOL% (35.7-47.0); Hemoglobin 11.2 GM/DL (12.0-16.0); Immature Granulocytes % 0.4 %; Immature Granulocytes Absolute 0.03 #; Lymphocytes # 1.1 10*3/uL (1.4-4.0); Lymphocytes % 15.2 % (21.3-54.2); Mean Corpuscular HGB Conc 30.8 GM/DL (32-36); Mean Corpuscular Volume 85.2 FL (87-102); Mean Platelet Volume 11.3 FL (9.6-12.0); Monocytes # 0.8 10*3/uL (0.11-0.8); Monocytes % 10.8 % (1.7-12.7); Neutrophils % 72.3 % (38.7-73.9); Platelet Count 140 T/CUMM (130-400); Red Blood Count 4.27 MC/CUMM (3.8-5.5); Red Cell Distribution Width 14.6 % (9.3-17.3); White Blood Count 7.5 T/CUMM (4-12)
[2022-04-10 12:12] LABS: Hypochromia Slight; Platelet Estimate Adequate
[2022-04-10 12:53] LABS: Glucose,Urine (UA) 100 mg/dL (Negative); Protein,Urine 30 mg/dL (Negative); Urine Appearance Slightly Cloudy (Clear); Urine Color Yellow (Yellow); Urine Specific Gravity 1.025 (1.001-1.035); Urine pH 5.5 (4.5-8.0)
[2022-04-10 12:54] LABS: Bilirubin,Urine Negative (Negative); Blood, Urine Negative (Negative); Ketones,Urine Trace mg/dL (Negative); Nitrite,Urine Negative (Negative); Urine Urobilinogen 0.2 eU/dL (<2.0)
[2022-04-10 13:00] LABS: Mucus,Urine Occasional /LPF (Occasional); RBC,Urine 5 /HPF (0-4); Squamous Epithelial Cell,Urine Occasional /HPF (0-10)
[2022-04-10] MEDS ORDERED: AZITHROMYCIN INJ 500 MG in SODIUM CHLORIDE 0.9% 250 ML IV ONE (14:42)
[2022-04-10] MEDS ORDERED: GLUCAGON 1 MG VIAL IM PRN ×2 (14:42→14:45)
[2022-04-10] MEDS ORDERED: MELATONIN 3 MG TABLET PO PRN (14:42)
[2022-04-10] MEDS ORDERED: DEXTROSE 10% 250 ML BAG IV PRN (14:42)
[2022-04-10] MEDS ORDERED: DEXTROSE 50% 25 GM/50 ML VIAL IV PRN (14:45)
[2022-04-10] MEDS ORDERED: ACETAMINOPHEN 325 MG TABLET PO PRN (14:45)
[2022-04-10] MEDS ORDERED: ONDANSETRON 4 MG/2 ML VIAL IV PRN (14:45)
[2022-04-10] MEDS ORDERED: REMDESIVIR 200 MG in SODIUM CHLORIDE 0.9% 210 ML IV ONE ×2 (14:51→17:04)
[2022-04-10] MEDS ORDERED: ALBUTEROL INHALER 18 GM INH PRN (15:10)
[2022-04-10] MEDS: HEPARIN 5,000 UNIT/1 ML VIAL SUBCUT SCH ×2 (16:28→23:37)
[2022-04-10] MEDS: DEXAMETHASONE 4 MG/1 ML VIAL IV SCH (16:28)
[2022-04-10] MEDS: INSULIN LISPRO 100 UNIT/ML SUBCUT SCH ×2 (16:30→17:54)
[2022-04-10] MEDS ORDERED: REMDESIVIR 100 MG in SODIUM CHLORIDE 0.9% 100 ML IV SCH (17:15)
[2022-04-10] MEDS: FAMOTIDINE 20 MG TABLET PO SCH (23:36)
[2022-04-10] MEDS: ASCORBIC ACID 500 MG TABLET PO SCH (23:37)
[2022-04-11] MEDS: INSULIN LISPRO 100 UNIT/ML SUBCUT SCH ×5 (00:37→22:00)
[2022-04-11 06:16] LABS: Hematocrit 37.9 VOL% (35.7-47.0); Hemoglobin 11.8 GM/DL (12.0-16.0); Immature Granulocytes % 0.4 %; Immature Granulocytes Absolute 0.03 #; Lymphocytes # 0.9 10*3/uL (1.4-4.0); Lymphocytes % 12.4 % (21.3-54.2); Mean Corpuscular HGB Conc 31.1 GM/DL (32-36); Mean Corpuscular Volume 83.3 FL (87-102); Mean Platelet Volume 11.6 FL (9.6-12.0); Monocytes # 0.4 10*3/uL (0.11-0.8); Monocytes % 4.9 % (1.7-12.7); Neutrophils % 82.3 % (38.7-73.9); Platelet Count 112 T/CUMM (130-400); Red Blood Count 4.55 MC/CUMM (3.8-5.5); White Blood Count 7.3 T/CUMM (4-12)
[2022-04-11 06:31] LABS: Alanine Aminotransferase 29 U/L (13-56); Albumin 2.7 G/DL (3.4-5.0); Alkaline Phosphatase 70 U/L (45-117); Aspartate Amino Transferase 29 U/L (0-37); Bilirubin,Total < 0.39 MG/DL (0.20-1.00); Blood Urea Nitrogen 14 MG/DL (7-18); Calcium 8.6 MG/DL (8.5-10.1); Carbon Dioxide 19 MMOL/L (21-32); Chloride 110 MMOL/L (98-107); Ferritin 945.2 ng/mL (8-252); Glucose 194 MG/DL (74-106); Osmolality,Calculated 282.5 MOS/KG (273-304); Potassium 3.9 MMOL/L (3.5-5.1); Sodium 139 MMOL/L (136-145); Total Protein 7.1 G/DL (6.4-8.2)
[2022-04-11] MEDS: ALBUTEROL INHALER 18 GM INH SCH ×3 (08:14→16:26)
[2022-04-11] MEDS ORDERED: REMDESIVIR 200 MG in SODIUM CHLORIDE 0.9% 210 ML IV ONE (09:00)
[2022-04-11] MEDS: DEXAMETHASONE 4 MG/1 ML VIAL IV SCH (09:18)
[2022-04-11] MEDS: HEPARIN 5,000 UNIT/1 ML VIAL SUBCUT SCH ×3 (09:19→23:39)
[2022-04-11] MEDS: ZINC GLUCONATE 50 MG TABLET PO SCH (09:19)
[2022-04-11] MEDS: FAMOTIDINE 20 MG TABLET PO SCH ×2 (09:20→21:23)
[2022-04-11] MEDS: ASCORBIC ACID 500 MG TABLET PO SCH ×2 (09:20→21:23)
[2022-04-11] MEDS: CHOLECALCIFEROL 1,000 UNIT TABLET PO SCH (09:20)
[2022-04-11] MEDS: PANTOPRAZOLE 40 MG TABLET PO SCH (09:20)
[2022-04-11] MEDS: AZITHROMYCIN 250 MG TABLET PO SCH (09:20)
[2022-04-11] MEDS ORDERED: REMDESIVIR 100 MG in SODIUM CHLORIDE 0.9% 100 ML IV SCH (15:00)
[2022-04-12 06:03] LABS: Basophils % 0.2 % (0.0-0.8); Hematocrit 37.1 VOL% (35.7-47.0); Hemoglobin 11.9 GM/DL (12.0-16.0); Immature Granulocytes % 0.6 %; Immature Granulocytes Absolute 0.07 #; Lymphocytes # 1.2 10*3/uL (1.4-4.0); Lymphocytes % 10.2 % (21.3-54.2); Mean Corpuscular HGB Conc 32.1 GM/DL (32-36); Mean Platelet Volume 10.3 FL (9.6-12.0); Monocytes # 0.5 10*3/uL (0.11-0.8); Monocytes % 4.2 % (1.7-12.7); Neutrophils % 84.8 % (38.7-73.9); Platelet Count 170 T/CUMM (130-400); Red Blood Count 4.58 MC/CUMM (3.8-5.5); Red Cell Distribution Width 13.7 % (9.3-17.3)
[2022-04-12 06:21] LABS: Alanine Aminotransferase 36 U/L (13-56); Albumin 3.1 G/DL (3.4-5.0); Alkaline Phosphatase 77 U/L (45-117); Aspartate Amino Transferase 36 U/L (0-37); Bilirubin,Total < 0.39 MG/DL (0.20-1.00); Blood Urea Nitrogen 18 MG/DL (7-18); Calcium 9.7 MG/DL (8.5-10.1); Carbon Dioxide 21 MMOL/L (21-32); Chloride 105 MMOL/L (98-107); Glucose 268 MG/DL (74-106); Potassium 3.4 MMOL/L (3.5-5.1); Sodium 136 MMOL/L (136-145); Total Protein 8.1 G/DL (6.4-8.2)
[2022-04-12] MEDS: ALBUTEROL INHALER 18 GM INH SCH ×6 (08:01→21:28)
[2022-04-12] MEDS: INSULIN LISPRO 100 UNIT/ML SUBCUT SCH ×4 (08:02→21:26)
[2022-04-12] MEDS: REMDESIVIR 100 MG in SODIUM CHLORIDE 0.9% 100 ML IV SCH (08:02)
[2022-04-12] MEDS: HEPARIN 5,000 UNIT/1 ML VIAL SUBCUT SCH ×2 (08:03→16:20)
[2022-04-12] MEDS: DEXAMETHASONE 4 MG/1 ML VIAL IV SCH (08:03)
[2022-04-12] MEDS: FAMOTIDINE 20 MG TABLET PO SCH ×2 (08:04→21:26)
[2022-04-12] MEDS: AZITHROMYCIN 250 MG TABLET PO SCH (08:04)
[2022-04-12] MEDS ORDERED: diphenhydrAMINE CAP 25 MG CAPSULE PO PRN (08:04)
[2022-04-12] MEDS ORDERED: NON-FORMULARY MEDICATION (Albuterol Sulfate [Ventolin Hfa] 90 MCG/PUFF HFA aerosol inhaler INH PRN (08:04)
[2022-04-12] MEDS: ZINC GLUCONATE 50 MG TABLET PO SCH (08:04)
[2022-04-12] MEDS ORDERED: ZALEPLON 5 MG CAPSULE PO PRN (08:04)
[2022-04-12] MEDS: PANTOPRAZOLE 40 MG TABLET PO SCH (08:04)
[2022-04-12] MEDS: CHOLECALCIFEROL 1,000 UNIT TABLET PO SCH (08:04)
[2022-04-12] MEDS: ASCORBIC ACID 500 MG TABLET PO SCH ×2 (08:04→21:25)
[2022-04-12] MEDS ORDERED: INSULIN GLARGINE 100 UNIT/ML SUBCUT SCH (09:00)
[2022-04-12] MEDS: POTASSIUM CHLORIDE 10 MEQ TABLET PO SCH ×2 (09:17→16:20)
[2022-04-12] MEDS: ASPIRIN EC 81 MG TABLET PO SCH (09:17)
[2022-04-12] MEDS: MAGNESIUM OXIDE 400 MG TABLET PO SCH ×2 (09:17→21:25)
[2022-04-12] MEDS: INSULIN GLARGINE 100 UNIT/ML SUBCUT SCH ×2 (09:18→21:27)
[2022-04-12] MEDS: atenoloL 25 MG TABLET PO SCH ×2 (09:18→21:26)
[2022-04-12] MEDS: SIMVASTATIN 10 MG TABLET PO SCH (21:26)
[2022-04-13] MEDS: HEPARIN 5,000 UNIT/1 ML VIAL SUBCUT SCH ×4 (00:36→22:29)
[2022-04-13] MEDS: ALBUTEROL INHALER 18 GM INH SCH ×7 (01:12→22:30)
[2022-04-13] MEDS: CHOLECALCIFEROL 1,000 UNIT TABLET PO SCH (09:54)
[2022-04-13] MEDS: POTASSIUM CHLORIDE 10 MEQ TABLET PO SCH ×2 (09:54→16:13)
[2022-04-13] MEDS: ZINC GLUCONATE 50 MG TABLET PO SCH (09:54)
[2022-04-13] MEDS: ASCORBIC ACID 500 MG TABLET PO SCH ×2 (09:54→21:43)
[2022-04-13] MEDS: atenoloL 25 MG TABLET PO SCH ×2 (09:55→21:42)
[2022-04-13] MEDS: MAGNESIUM OXIDE 400 MG TABLET PO SCH ×2 (09:55→21:42)
[2022-04-13] MEDS: AZITHROMYCIN 250 MG TABLET PO SCH (09:55)
[2022-04-13] MEDS: INSULIN LISPRO 100 UNIT/ML SUBCUT SCH ×4 (09:55→21:43)
[2022-04-13] MEDS: PANTOPRAZOLE 40 MG TABLET PO SCH (09:55)
[2022-04-13] MEDS: FAMOTIDINE 20 MG TABLET PO SCH ×2 (09:55→21:42)
[2022-04-13] MEDS: INSULIN GLARGINE 100 UNIT/ML SUBCUT SCH ×2 (09:56→21:43)
[2022-04-13] MEDS: DEXAMETHASONE 4 MG/1 ML VIAL IV SCH (09:57)
[2022-04-13] MEDS: REMDESIVIR 100 MG in SODIUM CHLORIDE 0.9% 100 ML IV SCH (11:07)
[2022-04-13] MEDS: ASPIRIN EC 81 MG TABLET PO SCH (11:08)
[2022-04-13] MEDS: SIMVASTATIN 10 MG TABLET PO SCH (21:44)
[2022-04-14] MEDS: ALBUTEROL INHALER 18 GM INH SCH ×4 (02:24→16:54)
[2022-04-14] MEDS: HEPARIN 5,000 UNIT/1 ML VIAL SUBCUT SCH ×3 (06:00→23:45)
[2022-04-14] MEDS: INSULIN LISPRO 100 UNIT/ML SUBCUT SCH ×4 (08:50→22:15)
[2022-04-14] MEDS: POTASSIUM CHLORIDE 10 MEQ TABLET PO SCH ×2 (08:51→16:55)
[2022-04-14] MEDS: INSULIN GLARGINE 100 UNIT/ML SUBCUT SCH ×2 (08:52→21:23)
[2022-04-14] MEDS: DEXAMETHASONE 4 MG/1 ML VIAL IV SCH (08:52)
[2022-04-14] MEDS: MAGNESIUM OXIDE 400 MG TABLET PO SCH ×2 (08:52→21:24)
[2022-04-14] MEDS: ASPIRIN EC 81 MG TABLET PO SCH (08:52)
[2022-04-14] MEDS: ASCORBIC ACID 500 MG TABLET PO SCH ×2 (08:53→21:24)
[2022-04-14] MEDS: atenoloL 25 MG TABLET PO SCH ×2 (08:53→21:24)
[2022-04-14] MEDS: CHOLECALCIFEROL 1,000 UNIT TABLET PO SCH (08:53)
[2022-04-14] MEDS: PANTOPRAZOLE 40 MG TABLET PO SCH (08:53)
[2022-04-14] MEDS: FAMOTIDINE 20 MG TABLET PO SCH ×2 (08:53→21:24)
[2022-04-14] MEDS: ZINC GLUCONATE 50 MG TABLET PO SCH (08:54)
[2022-04-14] MEDS: AZITHROMYCIN 250 MG TABLET PO SCH (08:54)
[2022-04-14 09:37] LABS: Hematocrit 38.9 VOL% (35.7-47.0); Hemoglobin 12.2 GM/DL (12.0-16.0); Immature Granulocytes % 0.5 %; Immature Granulocytes Absolute 0.07 #; Lymphocytes # 2.4 10*3/uL (1.4-4.0); Lymphocytes % 19.1 % (21.3-54.2); Mean Corpuscular HGB Conc 31.4 GM/DL (32-36); Mean Corpuscular Volume 81.9 FL (87-102); Mean Platelet Volume 11.4 FL (9.6-12.0); Monocytes # 0.7 10*3/uL (0.11-0.8); Monocytes % 5.6 % (1.7-12.7); Neutrophils % 74.8 % (38.7-73.9); Platelet Count 197 T/CUMM (130-400); Red Blood Count 4.75 MC/CUMM (3.8-5.5); Red Cell Distribution Width 13.8 % (9.3-17.3); White Blood Count 12.8 T/CUMM (4-12)
[2022-04-14 09:56] LABS: Alanine Aminotransferase 46 U/L (13-56); Albumin 2.9 G/DL (3.4-5.0); Alkaline Phosphatase 79 U/L (45-117); Aspartate Amino Transferase 34 U/L (0-37); Bilirubin,Total < 0.39 MG/DL (0.20-1.00); Blood Urea Nitrogen 32 MG/DL (7-18); Calcium 9.1 MG/DL (8.5-10.1); Carbon Dioxide 26 MMOL/L (21-32); Chloride 104 MMOL/L (98-107); Glucose 131 MG/DL (74-106); Osmolality,Calculated 287.4 MOS/KG (273-304); Potassium 3.4 MMOL/L (3.5-5.1); Sodium 140 MMOL/L (136-145); Total Protein 7.6 G/DL (6.4-8.2)
[2022-04-14] MEDS: DEXAMETHASONE 4 MG TABLET PO SCH (21:24)
[2022-04-14] MEDS: SIMVASTATIN 10 MG TABLET PO SCH (22:15)
[2022-04-15] MEDS ORDERED: hydrALAZINE 20 MG/1 ML VIAL IV PRN (01:09)
[2022-04-15] MEDS: HEPARIN 5,000 UNIT/1 ML VIAL SUBCUT SCH ×3 (09:55→22:21)
[2022-04-15] MEDS: ALBUTEROL INHALER 18 GM INH SCH ×5 (09:55→20:06)
[2022-04-15] MEDS: POTASSIUM CHLORIDE 10 MEQ TABLET PO SCH ×2 (09:55→16:06)
[2022-04-15] MEDS: INSULIN LISPRO 100 UNIT/ML SUBCUT SCH ×4 (09:55→21:24)
[2022-04-15] MEDS: DEXAMETHASONE 4 MG TABLET PO SCH (09:56)
[2022-04-15] MEDS: CHOLECALCIFEROL 1,000 UNIT TABLET PO SCH (09:56)
[2022-04-15] MEDS: MAGNESIUM OXIDE 400 MG TABLET PO SCH ×2 (09:56→21:23)
[2022-04-15] MEDS: FAMOTIDINE 20 MG TABLET PO SCH ×2 (09:56→21:23)
[2022-04-15] MEDS: atenoloL 25 MG TABLET PO SCH ×2 (09:56→21:24)
[2022-04-15] MEDS: ASPIRIN EC 81 MG TABLET PO SCH (09:56)
[2022-04-15] MEDS: INSULIN GLARGINE 100 UNIT/ML SUBCUT SCH ×2 (09:56→21:24)
[2022-04-15] MEDS: ASCORBIC ACID 500 MG TABLET PO SCH ×2 (09:56→21:23)
[2022-04-15] MEDS: PANTOPRAZOLE 40 MG TABLET PO SCH (09:56)
[2022-04-15] MEDS: ZINC GLUCONATE 50 MG TABLET PO SCH (09:57)
[2022-04-15] MEDS ORDERED: POTASSIUM CHLORIDE 20 MEQ TABLET PO ONE (10:59)
[2022-04-15] MEDS: SIMVASTATIN 10 MG TABLET PO SCH (21:23)
[2022-04-16] MEDS: ALBUTEROL INHALER 18 GM INH SCH ×3 (02:43→09:09)
[2022-04-16] MEDS: HEPARIN 5,000 UNIT/1 ML VIAL SUBCUT SCH (06:02)
[2022-04-16 06:45] LABS: Calcium 8.9 MG/DL (8.5-10.1); Osmolality,Calculated 284.3 MOS/KG (273-304); Potassium 4.1 MMOL/L (3.5-5.1)
[2022-04-16] MEDS ORDERED: INSULIN GLARGINE 100 UNIT/ML SUBCUT SCH (09:00)
[2022-04-16] MEDS ORDERED: DEXAMETHASONE 4 MG TABLET PO SCH (09:00)
[2022-04-16] MEDS: INSULIN LISPRO 100 UNIT/ML SUBCUT SCH ×2 (09:08→11:13)
[2022-04-16] MEDS: POTASSIUM CHLORIDE 10 MEQ TABLET PO SCH (09:20)
[2022-04-16] MEDS: PANTOPRAZOLE 40 MG TABLET PO SCH (09:21)
[2022-04-16] MEDS: MAGNESIUM OXIDE 400 MG TABLET PO SCH (09:21)
[2022-04-16] MEDS: ASPIRIN EC 81 MG TABLET PO SCH (09:21)
[2022-04-16] MEDS: FAMOTIDINE 20 MG TABLET PO SCH (09:21)
[2022-04-16] MEDS: CHOLECALCIFEROL 1,000 UNIT TABLET PO SCH (09:22)
[2022-04-16] MEDS: ZINC GLUCONATE 50 MG TABLET PO SCH (09:22)
[2022-04-16] MEDS: atenoloL 25 MG TABLET PO SCH (09:22)
[2022-04-16] MEDS: ASCORBIC ACID 500 MG TABLET PO SCH (09:22)
[2022-04-16 11:36] VITALS: BP 172/72
== END 2022-04-16 15:45 | disposition home health service (06) ==
LOC: N.ED 10:37 → N.EDINP 14:28 → INTOOBSV 14:28 → SUATTDRO 14:28 → N.3E 17:21
PROVIDERS: ADMIT Family Medicine; ATTEND Internal Medicine